=== PATIENT | male | born 1975 | race Hispanic/Latino ===

== ENCOUNTER → 2019-05-10 | Day surgery (SDC) | payer OTHER ==
--- NOTE | 2019-05-09 11:24 | Diagnostic Imaging Report ---
EXAMINATION: CHEST 2 VIEWS INDICATION: Pre-operative COMPARISON: None FINDINGS: LINES/TUBES:None LUNGS:The lungs are well-inflated. No focal consolidation or pulmonary edema. PLEURA:No pleural effusion or pneumothorax. MEDIASTINUM:The cardiomediastinal silhouette appears normal in size and shape. BONES/SOFT TISSUES:No acute osseous injury. ABDOMEN:No free air under the diaphragm. IMPRESSION: No focal pneumonia or pulmonary edema. Signed by: Reba Wheatley MD on 05/09/2019 11:21 AM
[~2019-05-10] MED LIST: ASPIR 8181 MG PO; ATORVASTATIN CA80 MG PO; BUPIVACAINE HCL 0.5% INJ 30 ML VIAL INJ ONE; CARDIZEM120 MG PO; CEFAZOLIN SOD 1 GM/NS 50ML 100 ML IV ONE; CLOPIDOGREL75 MG PO; DEXAMETHASONE SOD PHOS INJ 4 MG/ML VIAL ONE; FENTANYL CITRATE/PF 100MCG/2 ML INJ ONE; GABAPENTIN300 MG PO; IBUPROFEN 800MG/ 250ML 250 ML IV ONE; ISOSORBIDE MONO30 MG PO; LANTUS 3ML100 UNITS/ SQ; LIDOCAINE HCL 2% LOCAL INJ 5 ML SDV VIAL INJ ONE; LISINOPRIL2.5 MG PO; METFORMIN HCL500 M2 PO; METOPROLOL TART25 MG PO; MIDAZOLAM HCL 2 MG/2 ML VIAL ONE; NITROGLYCERIN0.4 MG SL; ONDANSETRON HCL INJ 2MG/ML 2ML 2 MG/ML VIAL ONE; PROPOFOL IV EMULSION 10 MG/ML 20 ML VIAL ONE; SEVOFLURANE INHAL SOLN 250 ML PEN BTL ONE
--- OUTSIDE RECORDS SUMMARY | 2019-05-10 10:10 | XMS REPORT | Clinical Summary ---
Author Author [facility] Organization [facility] Address Unknown Phone Unavailable Care Team Providers Care Remelter Name Role Phone Radha Jc MD PCP Allergies No Known Allergies Medications End Date Status Medication Sig Dispensed Refills Start Date Active isosorbide mononitrate Take 90 mg by 2 (IMDUR) 30 MG 24 hr mouth daily. 9 tablet Active atorvastatin (LIPITOR) 80 Take 80 mg by 1 MG tablet mouth daily. 9 Active diltiazem CD (CardIZEM Take 120 mg 0 CD) 120 MG 24 hr capsule by mouth daily. Active insulin GLARGINE (LANTUS) Inject under 0 100 unit/mL injection the skin (vial) nightly. Active lisinopril Take 2.5 mg 0 (PRINIVIL,ZESTRIL) 2.5 mg by mouth tablet daily. Active metoprolol tartrate Take 12.5 mg 0 (LOPRESSOR) 25 mg tablet by mouth 2 (two) times a day. Active clopidogrel (PLAVIX) 75 Take 75 mg by 0 mg tablet mouth daily. Active Problems Not on file Encounters Care Team Description Date Type Specialty Zak Hannon MD Muppidi, Raghunandan, MD Essential hypertension (Primary Dx); Mixed hyperlipidemia; Coronary artery disease involving [place] coronary artery of [place] heart without angina pectoris 05/04/2019 Office Visit Cardiology after 05/09/2018 Social History Date Tobacco Use Types Packs/Day Years Used Never Assessed Sex Assigned at Date Recorded Not on file Industry Job Start Date Occupation Not on file Not on file Not on file Travel End Travel History Travel Start No recent travel history available. Last Filed Vital Signs Reading Time Taken Comments Vital Sign 120/80 05/04/2019 10:33 AM CDT Blood Pressure 81 05/04/2019 10:33 AM CDT Pulse - - Temperature - - Respiratory Rate 98% 05/04/2019 10:33 AM CDT Oxygen Saturation - - Inhaled Oxygen Concentration 92.8 kg (204 lb 9.6 oz) 05/04/2019 10:33 AM CDT Weight 185.4 cm (6' 1") 05/04/2019 10:33 AM CDT Height 26.99 05/04/2019 10:33 AM CDT Body Mass Index Plan of Treatment Health Maintenance Due Date Last Done Comments INFLUENZA VACCINE 03/16/2019 Results Not on fileafter 05/09/2018 Insurance Type Payer Benefit Subscriber ID Effective Phone Address Plan / Dates Group Exchange [employer] xxxxxxxxxxxx 2019-P EXCHANGE [employer] Advance Directives For more information, please contact: [phone] Patient Field Reimbursement Manager Explanation Type Date Recorded Advance Directives, Living Will and Medical Power of [employer]agon Dr[employer] Operator
--- OUTSIDE RECORDS SUMMARY | 2019-05-10 10:10 | XMS REPORT | Clinical Summary ---
Author Author [facility] Organization [facility] Address Unknown Phone Unavailable Care Team Providers Care Process Owner Name Role Phone PCP Unavailable Allergies No Known Allergies Medications End Date Status Medication Sig Dispensed Refills Start Date Active lisinopril (PRINIVIL, Take 2.5 mg 0 ZESTRIL) 2.5 mg tablet by mouth daily. Active aspirin (ASPIRIN) 81 mg Chew and 0 chewable tablet swallow 81 mg by mouth daily. Active atorvastatin (LIPITOR) 80 Take 80 mg by 0 mg tablet mouth at bedtime nightly. Active clopidogrel (PLAVIX) 75 Take 75 mg by 0 mg tablet mouth daily. Active DILTIAZEM HCL COATED Take 120 mg 0 BEADS (CARDIZEM CD) 120 by mouth mg 24 hr capsule daily. Active insulin glargine (LANTUS) Inject 20 0 100 unit/mL injection Units under the skin 2 times daily. Active INSULIN LISPRO SC Inject 10 0 Units under the skin before meals. Active metFORMIN (GLUCOPHAGE) Take 1,000 mg 0 1,000 mg tablet by mouth 2 times daily (with meals). Active isosorbide mononitrate Take 3 180 tablet 2 (IMDUR) 30 mg extended tablets by 9 release mouth daily. tabletIndications: Coronary artery disease of [place] artery of [place] heart with stable angina pectoris Active metoprolol succinate Take 1 tablet 90 tablet 3 (TOPROL XL) 25 mg by mouth 9 extended release daily. tabletIndications: Coronary artery disease of [place] artery of [place] heart with stable angina pectoris Active nitroGLYCERIN (NITROSTAT) Dissolve 1 100 tablet 2 0.4 mg sublingual tablet under 9 tabletIndications: the tongue Coronary artery disease every 5 of [place] artery of minutes as [place] heart with stable needed, up to angina pectoris 3 times. If chest pain persists, call 911. 01/11/2019 Discontinued Tramadol 50 mg TbDL Take 50 mg by 0 mouth daily. 01/11/2019 Discontinued simvastatin (ZOCOR) 40 mg Take 1 tablet 90 tablet 5 tabletIndications: by mouth at 2 Hyperlipidemia bedtime. 01/11/2019 Discontinued lisinopril (PRINIVIL) 10 Take 1 tablet 30 tablet 1 mg tabletIndications: by mouth 7 Essential hypertension daily. 01/11/2019 Discontinued diltiazem (CARDIZEM) 120 Take 120 mg 0 mg tablet by mouth 4 times daily. 01/12/2019 Discontinued isosorbide mononitrate Take 30 mg by 0 (IMDUR) 30 mg extended mouth daily. release tablet 03/07/2019 Discontinued metoprolol tartrate Take 12.5 mg 0 (LOPRESSOR) 12.5 mg Tab by mouth 2 times daily. 03/07/2019 Discontinued isosorbide mononitrate Take 2 180 tablet 2 (IMDUR) 30 mg extended tablets by 9 release mouth daily. 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 01/12/2019 Type 2 diabetes mellitus without complication, without long-term current 01/12/2019 use of insulin Essential hypertension, benign 01/12/2019 S/P coronary artery stent placement (distal RCA and rPD 12/25/18) 01/12/2019 Hyperlipidemia 03/07/2012 Atypical chest pain 03/07/2012 Radiculopathy of lumbosacral region 03/07/2012 Foraminal stenosis of lumbosacral region 03/07/2012 Healthcare maintenance 01/19/2012 Resolved Problems Problem Noted Date Resolved Date Chest pain in adult 11/03/2017 01/12/2019 Encounters Care Team Description Date Type Specialty Yokasta Hahn, ELIUD 03/15/2019 Nurse Triage Shannan May, Physician Essential hypertension (Primary Dx); Coronary artery disease of [place] artery of [place] heart with stable angina pectoris; Hyperlipidemia, unspecified hyperlipidemia type; Chest pain, unspecified type 03/07/2019 Office Visit Cardiology Mira Guzman RN 01/17/2019 Nurse Triage Tarah Ayoub MD Lescinskas, Erica H, MD Chest pain in adult (Primary Dx); Prophylactic use of low molecular weight heparin for venous thromboembolism (VTE); Blurry vision; Coronary artery disease of [place] artery of [place] heart with stable angina pectoris; Type 2 diabetes mellitus without complication, without long-term current use of insulin 01/11/2019 Emergency - 01/12/2019 after 05/09/2018 Immunizations Name Administration Dates Next Due Td Tetanus, diphtheria 04/10/2008 Toxoids Vaccine Tdap Tetanus, diphtheria, 01/19/2012 acellular pertussis Vaccine Family History Medical History Relation Name Comments Diabetes Brother Diabetes Maternal Grandmother Diabetes Mother Hypertension Mother Diabetes Sister Relation Name Status Comments Brother Alive x2 Brother Daughter Alive Father Alive Maternal Grandfather Maternal Grandmother Mother Alive Paternal Grandfather Paternal Grandmother Sister Alive x2 Sister Son Alive x2 Social History Date Tobacco Use Types Packs/Day Years Used Never Smoker Smokeless Tobacco: Never Used Drinks/Week oz/Week Comments Alcohol Use No Sex Assigned at Date Recorded Not on file Industry Job Start Date Occupation Not on file Not on file Not on file Travel End Travel History Travel Start No recent travel history available. Last Filed Vital Signs Reading Time Taken Comments Vital Sign 119/78 03/07/2019 12:36 PM CDT Blood Pressure 68 03/07/2019 12:36 PM CDT Pulse 36.8 C (98.2 F) 03/07/2019 12:36 PM CDT Temperature 18 03/07/2019 12:36 PM CDT Respiratory Rate 98% 03/07/2019 12:36 PM CDT Oxygen Saturation - - Inhaled Oxygen Concentration 91.9 kg (202 lb 8 oz) 03/07/2019 12:36 PM CDT Weight 185.4 cm (6' 1") 03/07/2019 12:36 PM CDT Height 26.72 03/07/2019 12:36 PM CDT Body Mass Index Plan of Treatment Health Maintenance Due Date Last Done Comments DM Foot Exam (Yearly) 11/25/1991 DM Retinal Exam (Yearly) 11/25/1991 IMM Influenza Seasonal 05/16/2019 Oct to October (>/=19 yrs) CORONARY ARTERY DISEASE 01/13/2020 01/12/2019, 01/19/2012 AGE 18 AND UP DM HGBA1C (Yearly) 01/13/2020 01/12/2019 Procedures Comments Procedure Name Priority Date/Time Associated Diagnosis SEQUENTIAL COMPRESSION Routine 01/12/2019 PUMP 2:48 PM CDT POC GLUCOSE - IN LAB Routine 01/12/2019 (STAT) 12:30 PM CDT POC GLUCOSE - IN LAB Routine 01/12/2019 (STAT) 8:06 AM CDT TRANSTHORACIC ECHO (TTE) STAT 01/12/2019 7:46 AM CDT THYROID STIMULATING Routine 01/12/2019 HORMONE (TSH) 5:30 AM CDT MAGNESIUM Routine 01/12/2019 5:30 AM CDT LIPID PROFILE Routine 01/12/2019 5:30 AM CDT HEMOGLOBIN A1C Routine 01/12/2019 5:30 AM CDT CBC (WITHOUT Routine 01/12/2019 DIFFERENTIAL) 5:30 AM CDT BASIC METABOLIC PANEL Routine 01/12/2019 5:30 AM CDT PTT Routine 01/12/2019 5:30 AM CDT TROPONIN I Routine 01/12/2019 2:00 AM CDT INFUSION PUMP STAT 01/11/2019 8:50 PM CDT POC GLUCOSE - IN LAB Routine 01/11/2019 (STAT) 8:25 PM CDT TROPONIN I Routine 01/11/2019 8:00 PM CDT 12 LEAD EKG STAT 01/11/2019 7:00 PM CDT TROPONIN I POC Routine 01/11/2019 6:49 PM CDT XRAY CHEST 1 VIEW STAT 01/11/2019 Chest pain in adult 3:33 PM CDT POCT BNP (B-TYPE Routine 01/11/2019 NATRIURETIC PEPTIDE) 3:25 PM CDT BMP POC Routine 01/11/2019 3:18 PM CDT TROPONIN I POC Routine 01/11/2019 3:16 PM CDT B-TYPE NATRIURETIC STAT 01/11/2019 PEPTIDE (BNP) 3:10 PM CDT CBC/DIFF STAT 01/11/2019 3:10 PM CDT HIV-1/HIV-2 ROUTINE STAT 01/11/2019 SCREENING 3:10 PM CDT 12 LEAD EKG Routine 01/11/2019 3:00 PM CDT after 05/09/2018 Results * GLUCOSE POC (01/12/2019 12:30 PM CDT) Only the most recent of 3 results within the time period is included. Glucose POC 150 (H) 74 - 106 mg/dL BT MAIN-STATION 1 Specimen Performing Organization Address City/State/Zipcode Phone Number MISYS BT MAIN-STATION 1 * TRANSTHORACIC ECHO (TTE) (01/12/2019 7:46 AM CDT) TRANSTHORACIC Transthoracic SMS ECHO (TTE) Echo Report RICKY HOPSON Age:43 Gender: M :1975 Exam Date: 01/12/2019 07:46 Exam Location: [facility] Echo Ordering Phys: MARCY MENDOZA Referring Phys:KELLY Tolliver Reading Phys:Ann Clifton MD Fellow Phys: Luciano Oliveira M.D. Fellow Phys: Interventional Physician: Brad Dillon Reason For Exam: Indications: CAD ICD-9 Codes: I25._ Exam Type: TRANSTHORACIC ECHO (TTE) Procedure CPT:13993 Addtional CPT: Ht (in): 73 BSA: 2.14HR: 67 Rhythm: Sinus rhythm Wt (lb): 195BP: 125/ 84 Technical Quality: Good History: chest pain; recent STEMI on IABP MEASUREMENTS Normal ranges based on 95% confidence intervals for adults, some normal patients may fall outside of this range especially when indexing for BSA 2D ECHO LV Diastolic Diameter PLAX4.4 cm 4.2-5.8 (M) / 3.8-5.2 (F) LV Systolic Diameter PLAX 2.5 cm 2.5-4.0 (M) / 2.2-3.5 (F) LV Fractional Shortening PLAX 41.7 % IVS Diastolic Thickness 0.86 cm 0.6-1.0 (M) / 0.6-0.9 (F) LVPW Diastolic Thickness1 cm 0.6-1.0 (M) / 0.6-0.9 (F) LV Relative Wall Thickness0.43 <=0.42 LVOT Diameter 2.1 cm Aortic Root Diameter 3.6 cm LV Diastolic Volume MOD BP89.3 cm 62-150 cm (M) / 46-106 cm (F) LV Stroke Volume MOD BP 48.2 cm LV Cardiac Output MOD [id number] cm/min LV Cardiac Index MOD BP 1506 cm/minm LA Volume 22.1 cm LA Volume Index 10.3 cm/m 16 - 34 cm/m RV Diastolic Basal Diameter 3.7 cm 2.5 - 4.1 cm LV Mass by linear [id number] g LV Mass by linear method Index61.5 g/m RA Volume 33 cm RA Volume Index 15.4 cm/m DOPPLER AV Peak Velocity 96.8 cm/s AV Peak Gradient 3.8 mmHg LVOT Peak Velocity 82.6 cm/s LVOT Peak Gradient 2.7 mmHg LVOT Mean Velocity 53.1 cm/s LVOT Mean Gradient 1.1 mmHg LVOT Velocity Time Integral 18.2 cm LVOT Stroke Volume 64.4 cm AV Area Cont Eq pk 3 cm Mitral E Point Velocity 72.5 cm/s Mitral A Point Velocity 54.4 cm/s Mitral E to A Ratio 1.3 LV E' Lateral Velocity 11.1 cm/s Mitral E to LV E' Lateral Ratio 6.5 LV E' Septal Velocity 6.9 cm/s Mitral E to LV E' Septal Ratio10.5 FINDINGS Left Ventricle [place] is foreshortened. Ultrasound contrast was used for LV opacification. Normal left ventricular size. Normal left ventricular wall thickness. Low normal global left ventricular systolic function. Left ventricular ejection fraction is 50-54%.In various views, the inferior/inferolateral hopper appear hypokinetic but are not optimally seen despite the use of contrast. Impaired LV relaxation, normal LV filling pressures. Right Ventricle Normal right ventricular size and systolic function. Right Atrium Normal right atrial size. Left Atrium Normal left atrial size. IAS Mitral Valve Grossly normal mitral valve. Trace mitral regurgitation. Aortic Valve The aortic valve is trileaflet and opens well. No aortic valve stenosis or regurgitation. Tricuspid Valve Grossly normal tricuspid valve. Trace tricuspid regurgitation. Insufficient TR jet to estimate pulmonary artery systolic pressure. Pulmonic Valve Pulmonic valve not well visualized. No pulmonic stenosis. Trace pulmonic regurgitation. Pericardium No pericardial effusion. Aorta Normal size aortic root. IVC IVC is normal in size.normal hepatic vein flow patterns.RA pressure is 0-5 mmHg. CONCLUSIONS There are no prior studies available for comparison. - [place] is foreshortened. Ultrasound contrast was used for LV opacification. Normal left ventricular size. Normal left ventricular wall thickness. Low normal global left ventricular systolic function. Left ventricular ejection fraction is 50-54%.In various views, the inferior/inferolateral hopper appear hypokinetic but are not optimally seen despite the use of contrast. Impaired LV relaxation, normal LV filling pressures. -Normal right ventricular size and systolic function. -Normal atria -No significant valvular pathology. Ann Clifton MD Edited by:Ann Clifton MD (Electronically Signed) Final Date:12 Jan 2019 13:48 2D ECHO LV Diastolic Diameter PLAX4.4 cm 4.2-5.8 (M) / 3.8-5.2 (F) LV Systolic Diameter PLAX 2.5 cm 2.5-4.0 (M) / 2.2-3.5 (F) LV Fractional Shortening PLAX 41.7 % IVS Diastolic Thickness 0.86 cm 0.6-1.0 (M) / 0.6-0.9 (F) LVPW Diastolic Thickness1 cm 0.6-1.0 (M) / 0.6-0.9 (F) LV Relative Wall Thickness0.43 <=0.42 LVOT Diameter 2.1 cm Aortic Root Diameter 3.6 cm LV Diastolic Volume MOD BP89.3 cm 62-150 cm (M) / 46-106 cm (F) LV Stroke Volume MOD BP 48.2 cm LV Cardiac Output MOD [id number] cm/min LV Cardiac Index MOD BP 1506 cm/minm LA Volume 22.1 cm LA Volume Index 10.3 cm/m 16 - 34 cm/m RV Diastolic Basal Diameter 3.7 cm 2.5 - 4.1 cm LV Mass by linear g LV Mass by linear method Index61.5 g/m RA Volume 33 cm RA Volume Index 15.4 cm/m DOPPLER AV Peak Velocity 96.8 cm/s AV Peak Gradient 3.8 mmHg LVOT Peak Velocity 82.6 cm/s LVOT Peak Gradient 2.7 mmHg LVOT Mean Velocity 53.1 cm/s LVOT Mean Gradient 1.1 mmHg LVOT Velocity Time Integral 18.2 cm LVOT Stroke Volume 64.4 cm AV Area Cont Eq pk 3 cm Mitral E Point Velocity 72.5 cm/s Mitral A Point Velocity 54.4 cm/s Mitral E to A Ratio 1.3 LV E' Lateral Velocity 11.1 cm/s Mitral E to LV E' Lateral Ratio 6.5 LV E' Septal Velocity 6.9 cm/s Mitral E to LV E' Septal Ratio10.5 Specimen Performing Organization Address City/[facility]/[employer] Phone Number SMS * HEMOGLOBIN A1C (01/12/2019 5:30 AM CDT) Hemoglobin A1c 9.8 (H) 4.3 - 6.1 % BT DIAGNOSTIC IMMUNOLOGY Est Average 234.6 mg/dL BT DIAGNOSTIC Gluc IMMUNOLOGY Specimen Performing Organization Address City/State/[facility] Phone Number M[facility]YS BT DIAGNOSTIC IMMUNOLOGY * TSH (01/12/2019 5:30 AM CDT) TSH 1.44 0.57 - 3.74 uIU/mL BT MAIN-STATION 1 Specimen Performing Organization Address City/[facility] Phone Number MISYS BT MAIN-STATION 1 * PTT (01/12/2019 5:30 AM CDT) PTT 39.9 (H) 23.6 - 36.4 Seconds BT MAIN-STATION 3 Specimen Blood Performing Organization Address City/State/Zipcode Phone Number MISYS BT MAIN-STATION 3 * MAGNESIUM (01/12/2019 5:30 AM CDT) Magnesium 2.2 1.9 - 2.7 mg/dL BT MAIN-STATION 1 Specimen Performing Organization Address City/[facility] Phone Number M[facility]YS BT MAIN-STATION 1 * LIPID PROFILE (01/12/2019 5:30 AM CDT) Cholesterol 163 mg/dL BT MAIN-STATION Comment: 1 REFERENCE RANGE: Desirable: <200 mg/dL Borderline: 200-240 mg/dL High Risk: >240 mg/dL Triglyceride 123 <150 mg/dL BT MAIN-STATION Comment: 1 REFERENCE RANGE: Normal: <150 mg/dL Borderline High: 150-199 mg/dL High: 200-499 mg/dL Very High: >qq=372 mg/dL HDL 40 mg/dL BT MAIN-STATION Comment: 1 Increased CHD risk: <40 mg/dL Decreased CHD risk: >60 mg/dL LDL 98 mg/dL BT MAIN-STATION Comment: 1 REFERENCE RANGE: Optimal: <100 mg/dL Near Optimal: 100-129 mg/dL Borderline High: 130-159 mg/dL High: 160-189 mg/dL Very High: >lk=336 mg/dL Specimen Performing Organization Address [facility] [place] Phone Number [facility] BT MAIN-STATION 1 * CBC (01/12/2019 5:30 AM CDT) WBC 5.9 4.5 - 12.0 K/uL BT MAIN-STATION 2 RBC 4.72 4.60 - 6.20 M/uL BT MAIN-STATION 2 Hemoglobin 14.3 14.0 - 18.0 g/dL BT MAIN-STATION 2 Hematocrit 43.6 40.0 - 54.0 % BT MAIN-STATION 2 MCV 92 82 - 92 fL BT MAIN-STATION 2 MCH 30.3 27.0 - 31.0 pg BT MAIN-STATION 2 MCHC 32.8 32.0 - 36.0 g/dL BT MAIN-STATION 2 RDW 43.7 35.1 - 43.9 fL BT MAIN-STATION 2 Platelets 353 150 - 400 K/uL BT MAIN-STATION 2 Mean Platelet 9.7 9.4 - 12.4 fL BT MAIN-STATION Volume 2 Percent NRBC 0.0 BT MAIN-STATION 2 Absolute NRBC 0.00 BT MAIN-STATION 2 Specimen Performing Organization Address [facility] [place] Phone Number [facility] BT MAIN-STATION 2 * BASIC METABOLIC PANEL (01/12/2019 5:30 AM CDT) CO2 23 21 - 31 mmol/L BT MAIN-STATION 1 Chloride 106 98 - 107 mmol/L BT MAIN-STATION 1 Potassium 4.6 3.5 - 5.1 mmol/L BT MAIN-STATION 1 Sodium 139 136 - 145 mmol/L BT MAIN-STATION 1 Glucose 143 (H) 70 - 110 mg/dL BT MAIN-STATION 1 BUN 14 7 - 25 mg/dL BT MAIN-STATION 1 Creatinine 0.80 0.7 - 1.3 mg/dL BT MAIN-STATION 1 Anion Gap 10 BT MAIN-STATION 1 Calcium 9.2 8.6 - 10.3 mg/dL BT MAIN-STATION 1 GFR, Estimated >60 mL/min/1.73 m2 BT MAIN-STATION 1 eGFR If Africn >60 mL/min/1.73 m2 BT MAIN-STATION Am 1 Specimen Performing Organization Address City/[facility] [place] Phone Number [facility] BT MAIN-STATION 1 * TROPONIN I (01/12/2019 2:00 AM CDT) Only the most recent of 2 results within the time period is included. 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 Troponin POC 0.00 0.00 - 0.08 ng/mL BT MAIN-STATION 1 Specimen Performing Organization Address [facility] [place] Phone Number M[facility] BT MAIN-STATION 1 * XRAY CHEST 1 VIEW (01/11/2019 3:33 PM CDT) Specimen Impressions Performed At IMPRESSION: [facility] No acute thoracic abnormality. If the report is "FINALIZED" it indicates that the attending/staff radiologist has reviewed the images and agrees with the resident's interpretation. I have reviewed the study and agree with the findings in this report. Signed By: Sarah Green MD, 01/11/2019 4:17 PM Narrative Performed At EXAMINATION:XRAY CHEST 1 VIEW [facility] INDICATION: chest pain COMPARISON:None FINDINGS: Studies limited due to shock room technique. TUBES and LINES:None. LUNGS:Lungs are well inflated.Lungs are clear. There is no evidence of pneumonia or pulmonary edema. PLEURA:No pleural effusion or pneumothorax. HEART AND MEDIASTINUM:The cardiomediastinal silhouette is unremarkable. BONES AND SOFT TISSUES:No acute osseous lesion.Soft tissues are unremarkable. UPPER ABDOMEN: No free air under the diaphragm. Procedure Note Interface, Rad/Mammog In - 01/11/2019 4:22 PM CDT EXAMINATION: XRAY CHEST 1 VIEW INDICATION: chest pain COMPARISON: None FINDINGS: Studies limited due to shock room technique. TUBES and LINES: None. LUNGS: Lungs are well inflated. Lungs are clear. There is no evidence of pneumonia or pulmonary edema. PLEURA: No pleural effusion or pneumothorax. HEART AND MEDIASTINUM: The cardiomediastinal silhouette is unremarkable. BONES AND SOFT TISSUES: No acute osseous lesion. Soft tissues are unremarkable. UPPER ABDOMEN: No free air under the diaphragm. IMPRESSION IMPRESSION: No acute thoracic abnormality. If the report is "FINALIZED" it indicates that the attending/staff radiologist has reviewed the images and agrees with the resident's interpretation. I have reviewed the study and agree with the findings in this report. Signed By: Sarah Green MD, 01/11/2019 4:17 PM Performing Organization Address [facility] Phone Number SMS * POCT BNP (BRAIN NATRIURETIC PEPTIDE) (01/11/2019 3:25 PM CDT) B Natr Pept POC 86 0 - 100 pg/mL BT MAIN-STATION 1 Specimen Performing Organization Address [facility] [place] Phone Number [facility] BT MAIN-STATION 1 * BMP POC (01/11/2019 3:18 PM CDT) CO2 POC 23 21 - 32 mmol/L BT MAIN-STATION 1 Chloride POC 104 98 - 107 mmol/L BT MAIN-STATION 1 Potassium POC 3.8 3.50 - 5.10 mmol/L BT MAIN-STATION 1 Sodium POC 141 136 - 145 mmol/L BT MAIN-STATION 1 Glucose POC 109 (H) 74 - 106 mg/dL BT MAIN-STATION 1 Urea Nitrogen 16 7 - 18 mg/dL BT MAIN-STATION POC 1 Creatinine POC 0.8 0.6 - 1.3 mg/dL BT MAIN-STATION 1 Calcium Ionized 1.13 (L) 1.15 - 1.29 mmol/L BT MAIN-STATION POC 1 Hemoglobin POC 15.6 14.0 - 18.0 g/dL BT MAIN-STATION 1 Hematocrit POC 46.0 40.0 - 54.0 % BT MAIN-STATION 1 GFR, Estimated >60 mL/min/1.73 m2 BT MAIN-STATION 1 GFR, Estim, >60 mL/min/1.73 m2 BT MAIN-STATION Afr-Am 1 Specimen Performing Organization Address [facility] Phone Number M[facility] BT MAIN-STATION 1 * HIV-1/HIV-2 ROUTINE SCREENING (01/11/2019 3:10 PM CDT) HIV-1/HIV-2 Negative NEG BT MAIN-STATION 4 Specimen Performing Organization Address [facility] [place] Phone Number [facility] MAIN-STATION 4 * B-TYPE NATRIURETIC PEPTIDE (BNP) (01/11/2019 3:10 PM CDT) B Natriuretic 56 <101 pg/mL BT MAIN-STATION Pept 1 Specimen Blood Performing Organization Address [facility] Cent[facility]ode Phone Number M[facility]YS BT MAIN-STATION 1 * CBC/DIFF (01/11/2019 3:10 PM CDT) WBC 10.8 4.5 - 12.0 K/uL BT MAIN-STATION 2 RBC 4.67 4.60 - 6.20 M/uL BT MAIN-STATION 2 Hemoglobin 13.9 (L) 14.0 - 18.0 g/dL BT MAIN-STATION 2 Hematocrit 43.3 40.0 - 54.0 % BT MAIN-STATION 2 MCV 93 (H) 82 - 92 fL BT MAIN-STATION 2 MCH 29.8 27.0 - 31.0 pg BT MAIN-STATION 2 MCHC 32.1 32.0 - 36.0 g/dL BT MAIN-STATION 2 RDW 43.9 35.1 - 43.9 fL BT MAIN-STATION 2 Platelets 441 (H) 150 - 400 K/uL BT MAIN-STATION 2 Mean Platelet 10.0 9.4 - 12.4 fL BT MAIN-STATION Volume 2 Percent NRBC 0.0 BT MAIN-STATION 2 Absolute NRBC 0.00 BT MAIN-STATION 2 Neutrophils 49.1 34.0 - 67.9 % BT MAIN-STATION 2 Lymphs 40.3 21.8 - 50.0 % BT MAIN-STATION 2 Monocytes 7.8 5.3 - 12.0 % BT MAIN-STATION 2 Eos 1.8 0.8 - 5.0 % BT MAIN-STATION 2 Basos 0.6 0.2 - 1.2 % BT MAIN-STATION 2 Immature 0.4 0.0 - 0.5 BT MAIN-STATION Granulocytes 2 Neutrophils 5.32 1.78 - 5.36 K/uL BT MAIN-STATION (Absolute) 2 Lymphs 4.36 (H) 1.32 - 3.57 K/uL BT MAIN-STATION (Absolute) 2 Monocytes(Absol 0.84 (H) 0.30 - 0.82 K/uL BT MAIN-STATION [place]) 2 Eos (Absolute) 0.20 0.04 - 0.54 K/uL BT MAIN-STATION 2 Baso (Absolute) 0.07 0.01 - 0.08 K/uL BT MAIN-STATION 2 Immature Grans 0.04 (H) 0.00 - 0.03 K/uL BT MAIN-STATION (Abs) 2 Specimen Blood Performing Organization Address City/State/Zipcode Phone Number MISYS BT MAIN-STATION 2 * 12 LEAD EKG (01/11/2019 3:00 PM CDT) 12 LEAD EKG FOR [facility] Test Date:2019-01-11 Pat Name: RICKY Manning rtment: [id number] Room: Gender: M Bed Worker: [id number] :1976-0 11-24 Requested By: TAYLA PEREZ Order Number: [id number] Becki MD: Brian Curry M.D. Measurements Intervals [place] Rate: 72 P:47 VA: 138 QRS: 27 QRSD: 105 T: -7 QT: 413 QTc:455 Interpretive Statements SINUS RHYTHM INFERIOR MYOCARDIAL INFARCTION, OF INDETERMINATE AGE WITH POSTERIOR EXTENSION Electronically Signed On 01-11-2019 16:00:59 CDT by Brian Curry M.D. Specimen Performing Organization Address City/State/Zipcode Phone Number SMS after 05/09/2018 Insurance Type Payer Benefit Subscriber ID Effective Phone Address Plan / Dates Group [place] [employer] [place] 2019- [phone] [address] [employer] 2020 [id number] [place], [place] [facility] [id number] [facility] xxxxxxxxxxxx 2019-P [phone] [address] 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
--- OUTSIDE RECORDS SUMMARY | 2019-05-10 10:11 | XMS REPORT ---
[facility] Address Unknown Phone Unavailable Care Team Providers Care [employer] Name Role Phone Shankar JEFFERS Unavailable Unavailable Payers Payer Name Policy Type Policy Number Effective Date Expiration Date Problems This patient has no known problems. Allergies, Adverse Reactions, Alerts Allergy Name Allergy Type Status Severity Reaction(s) Onset Date Inactive Date Treating Clinician Comments No Known Allergies DA Active U 2018-12-25 00:00:00 Medications This patient has no known medications. Encounters Start Date/Time End Date/Time Encounter Type Admission Type Attending Clinicians Care Facility Care Department Encounter ID 2019-03-07 12:32:23 2019-03-07 12:32:23 Outpatient [facility] [id number] 2019-01-12 11:04:38 2019-01-12 11:04:38 Outpatient [facility] [id number] 2019-01-11 15:08:36 2019-01-11 15:08:[address] [facility] [id number] 2017-11-03 20:25:00 2017-11-03 20:25:[address] [facility] [id number] Results Test Description Test Time Test Comments Text Results Atomic Results Result Comments CHEST 2 VIEWS 2019-05-09 11:20:00 [place] [address] Patient Name: JATIN HOPSON MR #: [id number] : 1975 Age/Sex: 43/M Req #: [id number] Adm Physician: Ordered by: GLADYS PAIGE MD Report #: [id number] Location: OR Room/Bed: Procedure: [id number] DX/CHEST 2 VIEWS Exam Date: 05/09/19 Exam Time: 1040 REPORT STATUS: Signed EXAMINATION: CHEST 2 VIEWS INDICATION: Pre-operative COMPARISON: None FINDINGS: LINES/TUBES:None LUNGS:The lungs are well-inflated. No focal consolidation or pulmonary edema. PLEURA:No pleural effusion or pneumothorax. MEDIASTINUM:The cardiomediastinal silhouette appears normal in size and shape. BONES/SOFT TISSUES:No acute osseous injury. ABDOMEN:No free air under the diaphragm. IMPRESSION: No focal pneumonia or pulmonary edema. Signed by: Elena Schuster MD on 05/09/2019 11:21 AM Dictated By: ELENA SCHUSTER MD 112 Transcribed By: DANUTA POE on 05/09/19 112 COPY TO: GLADYS PAIGE MD BASIC METABOLIC PANEL 2019-01-02 08:11:00 SODIUM (test code=NA) 138 mmol/L 136-145 POTASSIUM (test code=K) 4.1 mmol/L 3.5-5.1 CHLORIDE (test code=CL) 105.0 mmol/L 98-107 CARBON DIOXIDE (test code=CO2) 25.0 mmol/L 21-32 ANION GAP (test code=GAP) 12.1 10-20 GLUCOSE (test code=GLU) 112 mg/dL 74-106 BLOOD UREA NITROGEN (test code=BUN) 10 mg/dL 7-18 GLOMERULAR FILTRATION RATE (test code=GFR) > 60 mL/min >=60 Estimated GFR by using Modified MDRD formula.Chronic kidney disease is defined as either kidney damageor GFR <60 mL/min/1.73 m2 for >3 months. CREATININE (test code=CREAT) 0.80 mg/dL 0.7-1.3 BUN/CREATININE RATIO (test code=BUN/CREA) 12.5 10-20 CALCIUM (test code=CA) 8.8 mg/dL 8.5-10.1 BASIC METABOLIC [id number] 08:06:00* Test Item Value Reference Range Comments SODIUM (test code=NA) 138 mmol/L 136-145 POTASSIUM (test code=K) 4.1 mmol/L 3.5-5.1 CHLORIDE (test code=CL) 105.0 mmol/L 98-107 CARBON DIOXIDE (test code=CO2) mmol/L 21-32 ANION GAP (test code=GAP) 10-20 GLUCOSE (test code=GLU) mg/dL 74-106 BLOOD UREA NITROGEN (test code=BUN) mg/dL 7-18 GLOMERULAR FILTRATION RATE (test code=GFR) mL/min >=60 CREATININE (test code=CREAT) mg/dL 0.7-1.3 BUN/CREATININE RATIO (test code=BUN/CREA) 10-20 CALCIUM (test code=CA) mg/dL 8.5-10.1 CBC W/AUTO [id number] 07:45:00* Test Item Value Reference Range Comments WHITE BLOOD CELL (test code=WBC) 5.6 K/mm3 4.5-12.5 RED BLOOD CELL (test code=RBC) 4.75 mill/mm3 4.0-5.8 HEMOGLOBIN (test code=HGB) 14.0 gram/dL 13.0-17.5 HEMATOCRIT (test code=HCT) 42.5 % 42.0-52.0 MEAN CELL VOLUME (test code=MCV) 89.5 fL 80-98 MEAN CELL HGB (test code=MCH) 29.5 picogram 27.0-33.0 MEAN CELL HGB CONCETRATION (test code=MCHC) 32.9 gram/dL 33.0-36.0 RED CELL DISTRIBUTION WIDTH (test code=RDW) 12.4 % 11.6-16.2 RED CELL DISTRIBUTION WIDTH SD (test code=RDW-SD) 41.0 fL 37.0-51.0 PLATELET COUNT (test code=PLT) 344 K/mm3 150-450 MEAN PLATELET VOLUME (test code=MPV) 9.5 fL 6.7-11.0 NEUTROPHIL % (test code=NT%) 55.9 % 39.0-69.0 IMMATURE GRANULOCYTE % (test code=IG%) 0.4 % 0.0-5.0 LYMPHOCYTE % (test code=LY%) 29.5 % 25.0-55.0 MONOCYTE % (test code=MO%) 9.7 % 0.0-10.0 EOSINOPHIL % (test code=EO%) 3.8 % 0.0-5.0 BASOPHIL % (test code=BA%) 0.7 % 0.0-1.0 NUCLEATED RBC % (test code=NRBC%) 0.0 % 0-0 NEUTROPHIL # (test code=NT#) 3.13 K/mm3 1.8-7.7 IMMATURE GRANULOCYTE # (test code=IG#) 0.02 x10 3/uL 0-0.03 LYMPHOCYTE # (test code=LY#) 1.65 K/mm3 1.0-5.0 MONOCYTE # (test code=MO#) 0.54 K/mm3 0-0.8 EOSINOPHIL # (test code=EO#) 0.21 K/mm3 0.0-0.5 BASOPHIL # (test code=BA#) 0.04 K/mm3 0.0-0.2 NUCLEATED RBC # (test code=NRBC#) 0.00 K/mm3 0.0-0.1 MANUAL DIFF REQUIRED (test code=MDIFF) NO [id number] 06:16:00* Test Item Value Reference Range Comments GLUBED (test code=GLUBED) 137 mg/dL 74-106 Performed by certified cloth mercerizer operator at [facility] [id number] 06:16:00* Test Item Value Reference Range Comments GLUBED (test code=GLUBED) 148 mg/dL 74-106 Performed by certified cloth mercerizer operator at [facility] [id number] 16:22:00* Test Item Value Reference Range Comments GLUBED (test code=GLUBED) 138 mg/dL 74-106 Performed by certified cloth mercerizer operator at [facility] [id number] 11:47:00* Test Item Value Reference Range Comments GLUBED (test code=GLUBED) 175 mg/dL 74-106 Performed by certified cloth mercerizer operator at [facility] BASIC METABOLIC [id number] 08:37:00* Test Item Value Reference Range Comments SODIUM (test code=NA) 136 mmol/L 136-145 POTASSIUM (test code=K) 4.4 mmol/L 3.5-5.1 CHLORIDE (test code=CL) 104.0 mmol/L 98-107 CARBON DIOXIDE (test code=CO2) 26.0 mmol/L 21-32 ANION GAP (test code=GAP) 10.4 10-20 GLUCOSE (test code=GLU) 179 mg/dL 74-106 BLOOD UREA NITROGEN (test code=BUN) 7 mg/dL 7-18 GLOMERULAR FILTRATION RATE (test code=GFR) > 60 mL/min >=60 Estimated GFR by using Modified MDRD formula.Chronic kidney disease is defined as either kidney damageor GFR <60 mL/min/1.73 m2 for >3 months. CREATININE (test code=CREAT) 0.90 mg/dL 0.7-1.3 BUN/CREATININE RATIO (test code=BUN/CREA) 7.8 10-20 CALCIUM (test code=CA) 8.9 mg/dL 8.5-10.1 CBC W/AUTO [id number] 08:23:00* Test Item Value Reference Range Comments WHITE BLOOD CELL (test code=WBC) 6.0 K/mm3 4.5-12.5 RED BLOOD CELL (test code=RBC) 4.42 mill/mm3 4.0-5.8 HEMOGLOBIN (test code=HGB) 13.0 gram/dL 13.0-17.5 HEMATOCRIT (test code=HCT) 39.3 % 42.0-52.0 MEAN CELL VOLUME (test code=MCV) 88.9 fL 80-98 MEAN CELL HGB (test code=MCH) 29.4 picogram 27.0-33.0 MEAN CELL HGB CONCETRATION (test code=MCHC) 33.1 gram/dL 33.0-36.0 RED CELL DISTRIBUTION WIDTH (test code=RDW) 12.6 % 11.6-16.2 RED CELL DISTRIBUTION WIDTH SD (test code=RDW-SD) 41.0 fL 37.0-51.0 PLATELET COUNT (test code=PLT) 328 K/mm3 150-450 MEAN PLATELET VOLUME (test code=MPV) 9.4 fL 6.7-11.0 NEUTROPHIL % (test code=NT%) 68.5 % 39.0-69.0 IMMATURE GRANULOCYTE % (test code=IG%) 0.5 % 0.0-5.0 LYMPHOCYTE % (test code=LY%) 19.1 % 25.0-55.0 MONOCYTE % (test code=MO%) 9.1 % 0.0-10.0 EOSINOPHIL % (test code=EO%) 2.3 % 0.0-5.0 BASOPHIL % (test code=BA%) 0.5 % 0.0-1.0 NUCLEATED RBC % (test code=NRBC%) 0.0 % 0-0 NEUTROPHIL # (test code=NT#) 4.12 K/mm3 1.8-7.7 IMMATURE GRANULOCYTE # (test code=IG#) 0.03 x10 3/uL 0-0.03 LYMPHOCYTE # (test code=LY#) 1.15 K/mm3 1.0-5.0 MONOCYTE # (test code=MO#) 0.55 K/mm3 0-0.8 EOSINOPHIL # (test code=EO#) 0.14 K/mm3 0.0-0.5 BASOPHIL # (test code=BA#) 0.03 K/mm3 0.0-0.2 NUCLEATED RBC # (test code=NRBC#) 0.00 K/mm3 0.0-0.1 MANUAL DIFF REQUIRED (test code=MDIFF) NO [id number] 06:22:00* Test Item Value Reference Range Comments GLUBED (test code=GLUBED) 85 mg/dL 74-106 Performed by certified cloth mercerizer operator at [facility] [id number] 20:41:00* Test Item Value Reference Range Comments GLUBED (test code=GLUBED) 197 mg/dL 74-106 Performed by certified cloth mercerizer operator at [facility] [id number] 17:28:00* Test Item Value Reference Range Comments GLUBED (test code=GLUBED) 109 mg/dL 74-106 Performed by certified cloth mercerizer operator at [facility] [id number] 12:49:00* Test Item Value Reference Range Comments GLUBED (test code=GLUBED) 156 mg/dL 74-106 Performed by certified cloth mercerizer operator at [facility] CBC W/AUTO [id number] 08:31:00* Test Item Value Reference Range Comments WHITE BLOOD CELL (test code=WBC) 6.0 K/mm3 4.5-12.5 RED BLOOD CELL (test code=RBC) 4.29 mill/mm3 4.0-5.8 HEMOGLOBIN (test code=HGB) 12.6 gram/dL 13.0-17.5 HEMATOCRIT (test code=HCT) 39.1 % 42.0-52.0 MEAN CELL VOLUME (test code=MCV) 91.1 fL 80-98 MEAN CELL HGB (test code=MCH) 29.4 picogram 27.0-33.0 MEAN CELL HGB CONCETRATION (test code=MCHC) 32.2 gram/dL 33.0-36.0 RED CELL DISTRIBUTION WIDTH (test code=RDW) 12.6 % 11.6-16.2 RED CELL DISTRIBUTION WIDTH SD (test code=RDW-SD) 41.7 fL 37.0-51.0 PLATELET COUNT (test code=PLT) 296 K/mm3 150-450 RESULT VERIFIED BY REPEAT ANALYSIS MEAN PLATELET VOLUME (test code=MPV) 9.7 fL 6.7-11.0 NEUTROPHIL % (test code=NT%) 58.1 % 39.0-69.0 IMMATURE GRANULOCYTE % (test code=IG%) 0.5 % 0.0-5.0 LYMPHOCYTE % (test code=LY%) 27.1 % 25.0-55.0 MONOCYTE % (test code=MO%) 10.4 % 0.0-10.0 EOSINOPHIL % (test code=EO%) 3.2 % 0.0-5.0 BASOPHIL % (test code=BA%) 0.7 % 0.0-1.0 NUCLEATED RBC % (test code=NRBC%) 0.0 % 0-0 NEUTROPHIL # (test code=NT#) 3.46 K/mm3 1.8-7.7 IMMATURE GRANULOCYTE # (test code=IG#) 0.03 x10 3/uL 0-0.03 LYMPHOCYTE # (test code=LY#) 1.61 K/mm3 1.0-5.0 MONOCYTE # (test code=MO#) 0.62 K/mm3 0-0.8 EOSINOPHIL # (test code=EO#) 0.19 K/mm3 0.0-0.5 BASOPHIL # (test code=BA#) 0.04 K/mm3 0.0-0.2 NUCLEATED RBC # (test code=NRBC#) 0.00 K/mm3 0.0-0.1 MANUAL DIFF REQUIRED (test code=MDIFF) NO [id number] 06:57:00* Test Item Value Reference Range Comments GLUBED (test code=GLUBED) 117 mg/dL 74-106 [facility] BASIC METABOLIC [id number] 06:16:00* Test Item Value Reference Range Comments SODIUM (test code=NA) 137 mmol/L 136-145 POTASSIUM (test code=K) 3.6 mmol/L 3.5-5.1 CHLORIDE (test code=CL) 101.0 mmol/L 98-107 CARBON DIOXIDE (test code=CO2) 26.0 mmol/L 21-32 ANION GAP (test code=GAP) 13.6 10-20 GLUCOSE (test code=GLU) 110 mg/dL 74-106 BLOOD UREA NITROGEN (test code=BUN) 8 mg/dL 7-18 GLOMERULAR FILTRATION RATE (test code=GFR) > 60 mL/min >=60 Estimated GFR by using Modified MDRD formula.Chronic kidney disease is defined as either kidney damageor GFR <60 mL/min/1.73 m2 for >3 months. CREATININE (test code=CREAT) 0.90 mg/dL 0.7-1.3 BUN/CREATININE RATIO (test code=BUN/CREA) 8.9 10-20 CALCIUM (test code=CA) 9.0 mg/dL 8.5-10.1 BASIC METABOLIC [id number] 06:09:00* Test Item Value Reference Range Comments SODIUM (test code=NA) 137 mmol/L 136-145 POTASSIUM (test code=K) 3.6 mmol/L 3.5-5.1 CHLORIDE (test code=CL) 101.0 mmol/L 98-107 CARBON DIOXIDE (test code=CO2) mmol/L 21-32 ANION GAP (test code=GAP) 10-20 GLUCOSE (test code=GLU) mg/dL 74-106 BLOOD UREA NITROGEN (test code=BUN) mg/dL 7-18 GLOMERULAR FILTRATION RATE (test code=GFR) mL/min >=60 CREATININE (test code=CREAT) mg/dL 0.7-1.3 BUN/CREATININE RATIO (test code=BUN/CREA) 10-20 CALCIUM (test code=CA) mg/dL 8.5-10.1 [id number] 20:50:00* Test Item Value Reference Range Comments GLUBED (test code=GLUBED) 144 mg/dL 74-106 [facility] [id number] 15:21:00* Test Item Value Reference Range Comments GLUBED (test code=GLUBED) 120 mg/dL 74-106 Performed by certified cloth mercerizer operator at [facility] [id number] 11:32:00* Test Item Value Reference Range Comments GLUBED (test code=GLUBED) 164 mg/dL 74-106 Performed by certified cloth mercerizer operator at [facility] B-TYPE NATRIURETIC [id number] 09:49:00* Test Item Value Reference Range Comments B-TYPE NATRIURETIC PEPTIDE (test code=BNP) 35.52 pgram/mL 0-100 [id number] 09:29:00* Test Item Value Reference Range Comments GLUBED (test code=GLUBED) 107 mg/dL 74-106 Performed by certified cloth mercerizer operator at [facility] CBC W/AUTO [id number] 08:57:00* Test Item Value Reference Range Comments WHITE BLOOD CELL (test code=WBC) 4.8 K/mm3 4.5-12.5 RED BLOOD CELL (test code=RBC) 3.67 mill/mm3 4.0-5.8 HEMOGLOBIN (test code=HGB) 10.9 gram/dL 13.0-17.5 HEMATOCRIT (test code=HCT) 33.7 % 42.0-52.0 MEAN CELL VOLUME (test code=MCV) 91.8 fL 80-98 MEAN CELL HGB (test code=MCH) 29.7 picogram 27.0-33.0 MEAN CELL HGB CONCETRATION (test code=MCHC) 32.3 gram/dL 33.0-36.0 RED CELL DISTRIBUTION WIDTH (test code=RDW) 12.6 % 11.6-16.2 RED CELL DISTRIBUTION WIDTH SD (test code=RDW-SD) 42.5 fL 37.0-51.0 PLATELET COUNT (test code=PLT) 150 K/mm3 150-450 MEAN PLATELET VOLUME (test code=MPV) 10.2 fL 6.7-11.0 NEUTROPHIL % (test code=NT%) 57.1 % 39.0-69.0 IMMATURE GRANULOCYTE % (test code=IG%) 0.4 % 0.0-5.0 LYMPHOCYTE % (test code=LY%) 29.6 % 25.0-55.0 MONOCYTE % (test code=MO%) 9.8 % 0.0-10.0 EOSINOPHIL % (test code=EO%) 2.7 % 0.0-5.0 BASOPHIL % (test code=BA%) 0.4 % 0.0-1.0 NUCLEATED RBC % (test code=NRBC%) 0.0 % 0-0 NEUTROPHIL # (test code=NT#) 2.73 K/mm3 1.8-7.7 IMMATURE GRANULOCYTE # (test code=IG#) 0.02 x10 3/uL 0-0.03 LYMPHOCYTE # (test code=LY#) 1.42 K/mm3 1.0-5.0 MONOCYTE # (test code=MO#) 0.47 K/mm3 0-0.8 EOSINOPHIL # (test code=EO#) 0.13 K/mm3 0.0-0.5 BASOPHIL # (test code=BA#) 0.02 K/mm3 0.0-0.2 NUCLEATED RBC # (test code=NRBC#) 0.00 K/mm3 0.0-0.1 MANUAL DIFF REQUIRED (test code=MDIFF) NO, ONLY SCAN NEEDED DIFFERENTIAL [id number] 08:57:00* Test Item Value Reference Range Comments STAIN ACCEPTABILITY (test code=STN ACCEPTABLE) STAIN ACCEPTABLE MORPHOLOGY COMMENT (test code=MOC) NORMAL PLATELET ESTIMATE (test code=PLTEST) ADEQUATE PLATELET MORPHOLOGY (test code=PLTMORPH) NORMAL CBC W/AUTO [id number] 08:43:00* Test Item Value Reference Range Comments WHITE BLOOD CELL (test code=WBC) 4.8 K/mm3 4.5-12.5 RED BLOOD CELL (test code=RBC) 3.67 mill/mm3 4.0-5.8 HEMOGLOBIN (test code=HGB) 10.9 gram/dL 13.0-17.5 HEMATOCRIT (test code=HCT) 33.7 % 42.0-52.0 MEAN CELL VOLUME (test code=MCV) 91.8 fL 80-98 MEAN CELL HGB (test code=MCH) 29.7 picogram 27.0-33.0 MEAN CELL HGB CONCETRATION (test code=MCHC) 32.3 gram/dL 33.0-36.0 RED CELL DISTRIBUTION WIDTH (test code=RDW) 12.6 % 11.6-16.2 RED CELL DISTRIBUTION WIDTH SD (test code=RDW-SD) 42.5 fL 37.0-51.0 PLATELET COUNT (test code=PLT) 150 K/mm3 150-450 MEAN PLATELET VOLUME (test code=MPV) 10.2 fL 6.7-11.0 NEUTROPHIL % (test code=NT%) 57.1 % 39.0-69.0 IMMATURE GRANULOCYTE % (test code=IG%) 0.4 % 0.0-5.0 LYMPHOCYTE % (test code=LY%) 29.6 % 25.0-55.0 MONOCYTE % (test code=MO%) 9.8 % 0.0-10.0 EOSINOPHIL % (test code=EO%) 2.7 % 0.0-5.0 BASOPHIL % (test code=BA%) 0.4 % 0.0-1.0 NUCLEATED RBC % (test code=NRBC%) 0.0 % 0-0 NEUTROPHIL # (test code=NT#) 2.73 K/mm3 1.8-7.7 IMMATURE GRANULOCYTE # (test code=IG#) 0.02 x10 3/uL 0-0.03 LYMPHOCYTE # (test code=LY#) 1.42 K/mm3 1.0-5.0 MONOCYTE # (test code=MO#) 0.47 K/mm3 0-0.8 EOSINOPHIL # (test code=EO#) 0.13 K/mm3 0.0-0.5 BASOPHIL # (test code=BA#) 0.02 K/mm3 0.0-0.2 NUCLEATED RBC # (test code=NRBC#) 0.00 K/mm3 0.0-0.1 MANUAL DIFF REQUIRED (test code=MDIFF) NO, ONLY SCAN NEEDED DIFFERENTIAL [id number] 08:43:00* Test Item Value Reference Range Comments STAIN ACCEPTABILITY (test code=STN ACCEPTABLE) CABOT RINGS (test code=CAB) MORPHOLOGY COMMENT (test code=MOC) PLATELET ESTIMATE (test code=PLTEST) PLATELET MORPHOLOGY (test code=PLTMORPH) CBC W/AUTO [id number] 08:43:00* Test Item Value Reference Range Comments WHITE BLOOD CELL (test code=WBC) 4.8 K/mm3 4.5-12.5 RED BLOOD CELL (test code=RBC) 3.67 mill/mm3 4.0-5.8 HEMOGLOBIN (test code=HGB) 10.9 gram/dL 13.0-17.5 HEMATOCRIT (test code=HCT) 33.7 % 42.0-52.0 MEAN CELL VOLUME (test code=MCV) 91.8 fL 80-98 MEAN CELL HGB (test code=MCH) 29.7 picogram 27.0-33.0 MEAN CELL HGB CONCETRATION (test code=MCHC) 32.3 gram/dL 33.0-36.0 RED CELL DISTRIBUTION WIDTH (test code=RDW) 12.6 % 11.6-16.2 RED CELL DISTRIBUTION WIDTH SD (test code=RDW-SD) 42.5 fL 37.0-51.0 PLATELET COUNT (test code=PLT) 150 K/mm3 150-450 MEAN PLATELET VOLUME (test code=MPV) 10.2 fL 6.7-11.0 NEUTROPHIL % (test code=NT%) 57.1 % 39.0-69.0 IMMATURE GRANULOCYTE % (test code=IG%) 0.4 % 0.0-5.0 LYMPHOCYTE % (test code=LY%) 29.6 % 25.0-55.0 MONOCYTE % (test code=MO%) 9.8 % 0.0-10.0 EOSINOPHIL % (test code=EO%) 2.7 % 0.0-5.0 BASOPHIL % (test code=BA%) 0.4 % 0.0-1.0 NUCLEATED RBC % (test code=NRBC%) 0.0 % 0-0 NEUTROPHIL # (test code=NT#) 2.73 K/mm3 1.8-7.7 IMMATURE GRANULOCYTE # (test code=IG#) 0.02 x10 3/uL 0-0.03 LYMPHOCYTE # (test code=LY#) 1.42 K/mm3 1.0-5.0 MONOCYTE # (test code=MO#) 0.47 K/mm3 0-0.8 EOSINOPHIL # (test code=EO#) 0.13 K/mm3 0.0-0.5 BASOPHIL # (test code=BA#) 0.02 K/mm3 0.0-0.2 NUCLEATED RBC # (test code=NRBC#) 0.00 K/mm3 0.0-0.1 MANUAL DIFF REQUIRED (test code=MDIFF) NO, ONLY SCAN NEEDED DIFFERENTIAL [id number] 08:43:00* Test Item Value Reference Range Comments STAIN ACCEPTABILITY (test code=STN ACCEPTABLE) CABOT RINGS (test code=CAB) MORPHOLOGY COMMENT (test code=MOC) PLATELET ESTIMATE (test code=PLTEST) PLATELET MORPHOLOGY (test code=PLTMORPH) CBC W/AUTO [id number] 08:43:00* Test Item Value Reference Range Comments WHITE BLOOD CELL (test code=WBC) 4.8 K/mm3 4.5-12.5 RED BLOOD CELL (test code=RBC) 3.67 mill/mm3 4.0-5.8 HEMOGLOBIN (test code=HGB) 10.9 gram/dL 13.0-17.5 HEMATOCRIT (test code=HCT) 33.7 % 42.0-52.0 MEAN CELL VOLUME (test code=MCV) 91.8 fL 80-98 MEAN CELL HGB (test code=MCH) 29.7 picogram 27.0-33.0 MEAN CELL HGB CONCETRATION (test code=MCHC) 32.3 gram/dL 33.0-36.0 RED CELL DISTRIBUTION WIDTH (test code=RDW) 12.6 % 11.6-16.2 RED CELL DISTRIBUTION WIDTH SD (test code=RDW-SD) 42.5 fL 37.0-51.0 PLATELET COUNT (test code=PLT) 150 K/mm3 150-450 MEAN PLATELET VOLUME (test code=MPV) 10.2 fL 6.7-11.0 NEUTROPHIL % (test code=NT%) 57.1 % 39.0-69.0 IMMATURE GRANULOCYTE % (test code=IG%) 0.4 % 0.0-5.0 LYMPHOCYTE % (test code=LY%) 29.6 % 25.0-55.0 MONOCYTE % (test code=MO%) 9.8 % 0.0-10.0 EOSINOPHIL % (test code=EO%) 2.7 % 0.0-5.0 BASOPHIL % (test code=BA%) 0.4 % 0.0-1.0 NUCLEATED RBC % (test code=NRBC%) 0.0 % 0-0 NEUTROPHIL # (test code=NT#) 2.73 K/mm3 1.8-7.7 IMMATURE GRANULOCYTE # (test code=IG#) 0.02 x10 3/uL 0-0.03 LYMPHOCYTE # (test code=LY#) 1.42 K/mm3 1.0-5.0 MONOCYTE # (test code=MO#) 0.47 K/mm3 0-0.8 EOSINOPHIL # (test code=EO#) 0.13 K/mm3 0.0-0.5 BASOPHIL # (test code=BA#) 0.02 K/mm3 0.0-0.2 NUCLEATED RBC # (test code=NRBC#) 0.00 K/mm3 0.0-0.1 MANUAL DIFF REQUIRED (test code=MDIFF) NO, ONLY SCAN NEEDED DIFFERENTIAL [id number] 08:43:00* Test Item Value Reference Range Comments STAIN ACCEPTABILITY (test code=STN ACCEPTABLE) MORPHOLOGY COMMENT (test code=MOC) PLATELET ESTIMATE (test code=PLTEST) PLATELET MORPHOLOGY (test code=PLTMORPH) CBC W/AUTO [id number] 08:43:00* Test Item Value Reference Range Comments WHITE BLOOD CELL (test code=WBC) 4.8 K/mm3 4.5-12.5 RED BLOOD CELL (test code=RBC) 3.67 mill/mm3 4.0-5.8 HEMOGLOBIN (test code=HGB) 10.9 gram/dL 13.0-17.5 HEMATOCRIT (test code=HCT) 33.7 % 42.0-52.0 MEAN CELL VOLUME (test code=MCV) 91.8 fL 80-98 MEAN CELL HGB (test code=MCH) 29.7 picogram 27.0-33.0 MEAN CELL HGB CONCETRATION (test code=MCHC) 32.3 gram/dL 33.0-36.0 RED CELL DISTRIBUTION WIDTH (test code=RDW) 12.6 % 11.6-16.2 RED CELL DISTRIBUTION WIDTH SD (test code=RDW-SD) 42.5 fL 37.0-51.0 PLATELET COUNT (test code=PLT) 150 K/mm3 150-450 MEAN PLATELET VOLUME (test code=MPV) 10.2 fL 6.7-11.0 NEUTROPHIL % (test code=NT%) 57.1 % 39.0-69.0 IMMATURE GRANULOCYTE % (test code=IG%) 0.4 % 0.0-5.0 LYMPHOCYTE % (test code=LY%) 29.6 % 25.0-55.0 MONOCYTE % (test code=MO%) 9.8 % 0.0-10.0 EOSINOPHIL % (test code=EO%) 2.7 % 0.0-5.0 BASOPHIL % (test code=BA%) 0.4 % 0.0-1.0 NUCLEATED RBC % (test code=NRBC%) 0.0 % 0-0 NEUTROPHIL # (test code=NT#) 2.73 K/mm3 1.8-7.7 IMMATURE GRANULOCYTE # (test code=IG#) 0.02 x10 3/uL 0-0.03 LYMPHOCYTE # (test code=LY#) 1.42 K/mm3 1.0-5.0 MONOCYTE # (test code=MO#) 0.47 K/mm3 0-0.8 EOSINOPHIL # (test code=EO#) 0.13 K/mm3 0.0-0.5 BASOPHIL # (test code=BA#) 0.02 K/mm3 0.0-0.2 NUCLEATED RBC # (test code=NRBC#) 0.00 K/mm3 0.0-0.1 MANUAL DIFF REQUIRED (test code=MDIFF) NO, ONLY SCAN NEEDED DIFFERENTIAL [id number] 08:43:00* Test Item Value Reference Range Comments STAIN ACCEPTABILITY (test code=STN ACCEPTABLE) CABOT RINGS (test code=CAB) MORPHOLOGY COMMENT (test code=MOC) PLATELET ESTIMATE (test code=PLTEST) PLATELET MORPHOLOGY (test code=PLTMORPH) BASIC METABOLIC [id number] 08:32:00* Test Item Value Reference Range Comments SODIUM (test code=NA) 137 mmol/L 136-145 POTASSIUM (test code=K) 3.8 mmol/L 3.5-5.1 CHLORIDE (test code=CL) 102.0 mmol/L 98-107 CARBON DIOXIDE (test code=CO2) 24.0 mmol/L 21-32 ANION GAP (test code=GAP) 14.8 10-20 GLUCOSE (test code=GLU) 128 mg/dL 74-106 BLOOD UREA NITROGEN (test code=BUN) 8 mg/dL 7-18 GLOMERULAR FILTRATION RATE (test code=GFR) > 60 mL/min >=60 Estimated GFR by using Modified MDRD formula.Chronic kidney disease is defined as either kidney damageor GFR <60 mL/min/1.73 m2 for >3 months. CREATININE (test code=CREAT) 0.60 mg/dL 0.7-1.3 BUN/CREATININE RATIO (test code=BUN/CREA) 13.3 10-20 CALCIUM (test code=CA) 8.6 mg/dL 8.5-10.1 [id number] 08:32:00* Test Item Value Reference Range Comments PHOSPHORUS (test code=PHOS) 4.1 mg/dL 2.5-4.9 [id number] 08:32:00* Test Item Value Reference Range Comments MAGNESIUM (test code=MAG) 2.1 mg/dL 1.8-2.4 CALCIUM [id number] 08:32:00* Test Item Value Reference Range Comments CALCIUM IONIZED (test code=MICHAEL) 1.23 mmol/L 1.12-1.32 [id number] 08:31:00* Test Item Value Reference Range Comments TROPONIN-I (test code=TROPI) 2.350 ng/mL 0-0.045 Results called to [id number] by [email or web address] 12/30/18 0831Critical results verified and read back by Nurse? Y BASIC METABOLIC [id number] 07:46:00* Test Item Value Reference Range Comments SODIUM (test code=NA) 137 mmol/L 136-145 POTASSIUM (test code=K) 3.8 mmol/L 3.5-5.1 CHLORIDE (test code=CL) 102.0 mmol/L 98-107 CARBON DIOXIDE (test code=CO2) 24.0 mmol/L 21-32 ANION GAP (test code=GAP) 14.8 10-20 GLUCOSE (test code=GLU) 128 mg/dL 74-106 BLOOD UREA NITROGEN (test code=BUN) 8 mg/dL 7-18 GLOMERULAR FILTRATION RATE (test code=GFR) > 60 mL/min >=60 Estimated GFR by using Modified MDRD formula.Chronic kidney disease is defined as either kidney damageor GFR <60 mL/min/1.73 m2 for >3 months. CREATININE (test code=CREAT) 0.60 mg/dL 0.7-1.3 BUN/CREATININE RATIO (test code=BUN/CREA) 13.3 10-20 CALCIUM (test code=CA) 8.6 mg/dL 8.5-10.1 [id number] 07:46:00* Test Item Value Reference Range Comments PHOSPHORUS (test code=PHOS) 4.1 mg/dL 2.5-4.9 [id number] 07:46:00* Test Item Value Reference Range Comments MAGNESIUM (test code=MAG) 2.1 mg/dL 1.8-2.4 CALCIUM [id number] 07:46:00* Test Item Value Reference Range Comments CALCIUM IONIZED (test code=MICHAEL) mmol/L 1.12-1.32 - XR CHEST 1 [id number] 06:01:00 FAX: Shantel Caballero MD [phone] [place]: [address] St: ADM FAX: Dave Reeves Name: JATIN HOPSON [facility] : 1975 Age/S: 43/M [address] [facility] Unit #: [id number] Loc: V.S[address] [place] [address] Phys: Dave Reeves Acct: [id number] Dis Date: Status: ADM IN PHONE #: [phone] Exam Date: 12/30/2018515 FAX #: [phone] Reason: balloon pump in place EXAMS: CPT CODE: [id number] XR CHEST 1 V 30198 EXAM: Portable chest one view. Location code:J9 HISTORY: Balloon pump COMPARISON: 12/29/2018. COMMENT: The balloon pump marker is not well identified on this exam.. The lungs and pleural spaces are clear. Lungs are normally expanded. The aorta, pulmonary vasculature and mediastinum are within normal limits. Cardiac silhouette is normal in size and contour. Visualized skeletal structures are unremarkable. IMPRESSION: No active disease in the chest. at 0601 Reported and signed by: Arturo Robb M.D. CC: Shantel Garcia MD; Dave Reeves Technologist: PHIL MENDOZA JR Trnscrd Date/Time/By: 12/30/2018 (06) : By: [email or web address] Orig Print D/T: S: 12/30/2018 (0604) PAGE 1 Signed Report [id number] 22:44:00* Test Item Value Reference Range Comments GLUBED (test code=GLUBED) 114 mg/dL 74-106 Performed by certified cloth mercerizer operator at [facility] [id number] 16:29:00* Test Item Value Reference Range Comments GLUBED (test code=GLUBED) 142 mg/dL 74-106 Performed by certified cloth mercerizer operator at [facility] [id number] 11:01:00* Test Item Value Reference Range Comments GLUBED (test code=GLUBED) 122 mg/dL 74-106 Performed by certified cloth mercerizer operator at [facility] BASIC METABOLIC [id number] 07:51:00* Test Item Value Reference Range Comments SODIUM (test code=NA) 134 mmol/L 136-145 POTASSIUM (test code=K) 3.9 mmol/L 3.5-5.1 CHLORIDE (test code=CL) 101.0 mmol/L 98-107 CARBON DIOXIDE (test code=CO2) 25.0 mmol/L 21-32 ANION GAP (test code=GAP) 11.9 10-20 GLUCOSE (test code=GLU) 159 mg/dL 74-106 BLOOD UREA NITROGEN (test code=BUN) 10 mg/dL 7-18 GLOMERULAR FILTRATION RATE (test code=GFR) > 60 mL/min >=60 Estimated GFR by using Modified MDRD formula.Chronic kidney disease is defined as either kidney damageor GFR <60 mL/min/1.73 m2 for >3 months. CREATININE (test code=CREAT) 0.80 mg/dL 0.7-1.3 BUN/CREATININE RATIO (test code=BUN/CREA) 12.5 10-20 CALCIUM (test code=CA) 9.0 mg/dL 8.5-10.1 [id number] 07:51:00* Test Item Value Reference Range Comments PHOSPHORUS (test code=PHOS) 3.6 mg/dL 2.5-4.9 [id number] 07:51:00* Test Item Value Reference Range Comments MAGNESIUM (test code=MAG) 2.3 mg/dL 1.8-2.4 CALCIUM [id number] 07:51:00* Test Item Value Reference Range Comments CALCIUM IONIZED (test code=MICHAEL) 1.26 mmol/L 1.12-1.32 BASIC METABOLIC [id number] 07:42:00* Test Item Value Reference Range Comments SODIUM (test code=NA) mmol/L 136-145 POTASSIUM (test code=K) mmol/L 3.5-5.1 CHLORIDE (test code=CL) mmol/L 98-107 CARBON DIOXIDE (test code=CO2) mmol/L 21-32 ANION GAP (test code=GAP) 10-20 GLUCOSE (test code=GLU) mg/dL 74-106 BLOOD UREA NITROGEN (test code=BUN) mg/dL 7-18 GLOMERULAR FILTRATION RATE (test code=GFR) mL/min >=60 CREATININE (test code=CREAT) mg/dL 0.7-1.3 BUN/CREATININE RATIO (test code=BUN/CREA) 10-20 CALCIUM (test code=CA) mg/dL 8.5-10.1 [id number] 07:42:00* Test Item Value Reference Range Comments PHOSPHORUS (test code=PHOS) mg/dL 2.5-4.9 [id number] 07:42:00* Test Item Value Reference Range Comments MAGNESIUM (test code=MAG) mg/dL 1.8-2.4 CALCIUM [id number] 07:42:00* Test Item Value Reference Range Comments CALCIUM IONIZED (test code=MICHAEL) 1.26 mmol/L 1.12-1.32 [id number] 07:36:00* Test Item Value Reference Range Comments GLUBED (test code=GLUBED) 179 mg/dL 74-106 Performed by certified cloth mercerizer operator at [facility] CBC W/AUTO [id number] 07:31:00* Test Item Value Reference Range Comments WHITE BLOOD CELL (test code=WBC) 9.4 K/mm3 4.5-12.5 RED BLOOD CELL (test code=RBC) 4.47 mill/mm3 4.0-5.8 HEMOGLOBIN (test code=HGB) 12.8 gram/dL 13.0-17.5 HEMATOCRIT (test code=HCT) 41.0 % 42.0-52.0 MEAN CELL VOLUME (test code=MCV) 91.7 fL 80-98 MEAN CELL HGB (test code=MCH) 28.6 picogram 27.0-33.0 MEAN CELL HGB CONCETRATION (test code=MCHC) 31.2 gram/dL 33.0-36.0 RED CELL DISTRIBUTION WIDTH (test code=RDW) 12.9 % 11.6-16.2 RED CELL DISTRIBUTION WIDTH SD (test code=RDW-SD) 43.5 fL 37.0-51.0 PLATELET COUNT (test code=PLT) 251 K/mm3 150-450 MEAN PLATELET VOLUME (test code=MPV) 10.1 fL 6.7-11.0 NEUTROPHIL % (test code=NT%) 57.9 % 39.0-69.0 IMMATURE GRANULOCYTE % (test code=IG%) 0.5 % 0.0-5.0 LYMPHOCYTE % (test code=LY%) 29.0 % 25.0-55.0 MONOCYTE % (test code=MO%) 10.9 % 0.0-10.0 EOSINOPHIL % (test code=EO%) 1.2 % 0.0-5.0 BASOPHIL % (test code=BA%) 0.5 % 0.0-1.0 NUCLEATED RBC % (test code=NRBC%) 0.0 % 0-0 NEUTROPHIL # (test code=NT#) 5.44 K/mm3 1.8-7.7 IMMATURE GRANULOCYTE # (test code=IG#) 0.05 x10 3/uL 0-0.03 LYMPHOCYTE # (test code=LY#) 2.72 K/mm3 1.0-5.0 MONOCYTE # (test code=MO#) 1.02 K/mm3 0-0.8 EOSINOPHIL # (test code=EO#) 0.11 K/mm3 0.0-0.5 BASOPHIL # (test code=BA#) 0.05 K/mm3 0.0-0.2 NUCLEATED RBC # (test code=NRBC#) 0.00 K/mm3 0.0-0.1 MANUAL DIFF REQUIRED (test code=MDIFF) NO - XR CHEST 1 [id number] 05:44:00 FAX: Shantel Caballero MD [phone] [place]: St: ADM FAX: Dave Reeves Name: JATIN HOPSON [facility] : 1975 Age/S: 43/M [address] [facility] Unit #: [id number] Loc: [address] [address] Phys: Dave Reeves Acct: [id number] Dis Date: Status: ADM IN PHONE #: [phone] Exam Date: 12/29/2018514 FAX #: [phone] Reason: balloon pump in place EXAMS: CPT CODE: [id number] XR CHEST 1 V 10176 EXAM: Portable chest one view. Location code:J9 HISTORY: Balloon pump COMPARISON: 10/28/2018 COMMENT: The balloon pump marker is not well identified on this exam.. The lungs and pleural spaces are clear. Lungs are normally expanded. The aorta, pulmonary vasculature and mediastinum are within normal limits. Cardiac silhouette is normal in size and contour. Visualized skeletal structures are unremarkable. IMPRESSION: No active disease in the chest. at 0530 Reported and signed by: Arturo Robb M.D. CC: Shantel Garcia MD; Dave Reeves Technologist: PHIL Abrams Trnscrd Date/Time/By: 12/29/2018 (0553) : By: [email or web address] Orig Print D/T: S: 12/29/2018 (0663) PAGE 1 Signed Report - CT HEAD/BRAIN W/O [id number] 22:30:00 Name: JATIN HOPSON [facility] : 1975 Age/S: 43 / M [address] [facility] Unit #: [id number] Loc: [place] [address] Phys: Stacy Garcia MD Acct: [id number] Di s Date: Status: ADM IN PHONE #: Exam Date: 12/28/20182225 FAX #: [phone] Reason: HEADACHE PERSISTENT EXAMS: CPT CODE: [id number] CT HEAD/BRAIN W/O CONT 67467 REASON FOR EXAM: HEADACHE PERSISTENT EXAM ORDER DATE: 12/28/2018 7:01 PM Ordering M.D.: Shantel Garcia MD PROCEDURE: - CT HEAD/BRAIN W/O CONT COMPARISON: FINDINGS: CT images of the brain were obtained without IV contrast. Dose modulation, iterative reconstruct ion, and/or weight based adjustment of the MA/KV was utilized to reduce th e radiation dose to as low as reasonably achievable. The br ain parenchyma is within normal limits. The cruz-white matter delineation is unremarkable. The ventricles, cisterns, and sulci are unremarkable. The re is no evidence of hemorrhage, mass, mass effect. There is no evidence of acute or old infarct. The calvarium is intact. IMPRESS ION: Unremarkable brain. at 2230 Reported and signed by: Alexsander Morales M.D. CC: Shantel Garcia MD Technologist:ROSALEE KOENIG, RT(R) CT CTDI: DLP: Trnscb Date/Time: 12/28/2018 (2229) [email or web address] Orig Print D/T: S: 12/28/2018 (3163) PAGE 1 Signed Report [id number] 21:22:00* Test Item Value Reference Range Comments GLUBED (test code=GLUBED) 145 mg/dL 74-106 Performed by certified cloth mercerizer operator at [facility] [id number] 16:26:00* Test Item Value Reference Range Comments GLUBED (test code=GLUBED) 174 mg/dL 74-106 Performed by certified cloth mercerizer operator at [facility] [id number] 14:45:00* Test Item Value Reference Range Comments GLUBED (test code=GLUBED) 149 mg/dL 74-106 Performed by certified cloth mercerizer operator at [facility] COAGULATION TIME [id number] 10:45:00* Test Item Value Reference Range Comments COAGULATION TIME ACTIVATED (test code=ACT) 99 seconds 62.8-88.0 [id number] 10:31:00* Test Item Value Reference Range Comments GLUBED (test code=GLUBED) 144 mg/dL 74-106 Performed by certified cloth mercerizer operator at [facility] - XR CHEST 1 [id number] 06:58:00 FAX: Shantel Caballero MD [phone] [place]: St: ADM FAX: Dave Reeves Name: JATIN HOPSON [facility] : 1975 Age/S: 43/M [address] [facility] Unit #: [id number] Loc: [address] [address] Phys: Dave Reeves Acct: [id number] Dis Date: Status: ADM IN PHONE #: [phone] Exam Date: 12/28/2018 05 FAX #: [phone] Reason: balloon pump in place EXAMS: CPT CODE: [id number] XR CHEST 1 V 21420 EXAM: Portable chest one view. Location code:J9 HISTORY: Balloon pump COMPARISON: 12/27/2018 COMMENT: Stable position of balloon pump.. The lungs and pleural spaces are clear. Lungs are normally expanded. The aorta, pulmonary vasculature and mediastinum are within normal limits. Cardiac silhouette is normal in size and contour. Visualized skeletal structures are unremarkable. IMPRESSION: No active disease in the chest. at 0658 Reported and signed by: Arturo Robb M.D. CC: Shantel Garcia MD; Dave Reeves Technologist: PHIL MENDOZA JR; Mae Abrams Trnscrd Date/Time/By: 12/28/2018 (0658) : By: [email or web address] Orig Print D/T: S: 12/28/2018 (0764) PAGE 1 Signed Report B-TYPE NATRIURETIC [id number] 06:42:00* Test Item Value Reference Range Comments B-TYPE NATRIURETIC PEPTIDE (test code=BNP) 18.6 pgram/mL 0-100 [id number] 06:21:00* Test Item Value Reference Range Comments GLUBED (test code=GLUBED) 180 mg/dL 74-106 Performed by certified cloth mercerizer operator at [facility] [id number] 05:14:00* Test Item Value Reference Range Comments GLYCOSYLATED HEMOGLOBIN (HA1C) (test code=GLYHGB) 10.7 % HbA1 4.8-6.0 ESTIMATED AVERAGE GLUCOSE (test code=EAG) 260 MG/DL THROMBOPLASTIN TIME [id number] 04:50:00* Test Item Value Reference Range Comments THROMBOPLASTIN TIME PARTIAL (test code=PTT) 103.9 seconds 25.0-36.5 Results called to [id number] by V.[email or web address].RA1 12/28/18 0450Critical results verified and read back by Nurse? Y IS PATIENT ON ANTICOAGULANTS? YLIST ANTICOAGULANTS HEPARINLIPID PROFILE (CORONARY RISK)2018-12-28 04:46:00* Test Item Value Reference Range Comments TRIGLYCERIDES (test code=TRIG) 179 mg/dL 20-150 CHOLESTEROL (test code=CHOL) 198 mg/dL 0-200 CHOLESTEROL/HDL RATIO (test code=CHOLHDL) 4.0 RATIO 0-4.9 RISK ASSOCIATED WITH CHOL/HDL RATIOS: Risk Male Female1/2 AVERAGE 3.43 3.27AVERAGE 4.97 4.442X AVERAGE 9.55 7.053X AVERAGE 23.39 11.04 REFERENCE VALUE IS RELATED TO RISK LEVELS ASRECOMMENDED BY THE RADHA. HEART, LUNG, AND BLOOD INST. HDL CHOLESTEROL (test code=HDL) 42 mg/dL 40-60 LIPOPROTEIN LDL (test code=LDL) 139 mg/dL 100-129 RN PERSONNEL, CONTACT PHYSICIAN IMMEDIATELY IF THIS IS A STROKE, AMI OR CAROTID STENOSIS PATIENT WHEN THE LDL >100 (1ST OCCURENCE, THIS ADMISSION) Reference Interval: mg/dL mmol/L Optimal <100 <2.6Near/above optimal 100-129 2.6- 3.3Borderline High 130-159 3.4-4.1High 160-189 4.1-4.9Very High >=190 >=4.9=========This LDL result is a direct measurement.========= THYROID PROFILE [id number] 04:46:00* Test Item Value Reference Range Comments T3 UPTAKE (test code=T3UP) 37.0 % 30.0-40.0 T4 (THYROXINE) (test code=T4) 7.5 ug/dL 4.5-13.9 T7 (FREE THYROXINE INDEX) (test code=T7) 2.77 FTI 1.3-5.1 THYROID STIMULATING HORMONE (test code=TSH) 1.100 uIU/mL 0.36-3.74 TSH REFERENCE RANGES: EUTHYROID: 0.35 - 4.3 mIU/mL HYPO : > 5.5 mIU/mL HYPER : < 0.35 mIU/mL [id number] 04:46:00* Test Item Value Reference Range Comments TROPONIN-I (test code=TROPI) 5.060 ng/mL 0-0.045 BASIC METABOLIC [id number] 04:45:00* Test Item Value Reference Range Comments SODIUM (test code=NA) 133 mmol/L 136-145 POTASSIUM (test code=K) 3.8 mmol/L 3.5-5.1 CHLORIDE (test code=CL) 100.0 mmol/L 98-107 CARBON DIOXIDE (test code=CO2) 22.0 mmol/L 21-32 ANION GAP (test code=GAP) 14.8 10-20 GLUCOSE (test code=GLU) 178 mg/dL 74-106 BLOOD UREA NITROGEN (test code=BUN) 13 mg/dL 7-18 GLOMERULAR FILTRATION RATE (test code=GFR) > 60 mL/min >=60 Estimated GFR by using Modified MDRD formula.Chronic kidney disease is defined as either kidney damageor GFR <60 mL/min/1.73 m2 for >3 months. CREATININE (test code=CREAT) 0.70 mg/dL 0.7-1.3 BUN/CREATININE RATIO (test code=BUN/CREA) 18.6 10-20 CALCIUM (test code=CA) 7.5 mg/dL 8.5-10.1 [id number] 04:45:00* Test Item Value Reference Range Comments PHOSPHORUS (test code=PHOS) 2.9 mg/dL 2.5-4.9 [id number] 04:45:00* Test Item Value Reference Range Comments MAGNESIUM (test code=MAG) 2.2 mg/dL 1.8-2.4 Results called to by V.[email or web address].AG1 12/28/18 0445Critical results verified and read back by Nurse? CALCIUM [id number] 04:45:00* Test Item Value Reference Range Comments CALCIUM IONIZED (test code=MICHAEL) 1.08 mmol/L 1.12-1.32 BASIC METABOLIC [id number] 04:34:00* Test Item Value Reference Range Comments SODIUM (test code=NA) 133 mmol/L 136-145 POTASSIUM (test code=K) 3.8 mmol/L 3.5-5.1 CHLORIDE (test code=CL) 100.0 mmol/L 98-107 CARBON DIOXIDE (test code=CO2) mmol/L 21-32 ANION GAP (test code=GAP) 10-20 GLUCOSE (test code=GLU) mg/dL 74-106 BLOOD UREA NITROGEN (test code=BUN) mg/dL 7-18 GLOMERULAR FILTRATION RATE (test code=GFR) mL/min >=60 CREATININE (test code=CREAT) mg/dL 0.7-1.3 BUN/CREATININE RATIO (test code=BUN/CREA) 10-20 CALCIUM (test code=CA) 7.5 mg/dL 8.5-10.1 [id number] 04:34:00* Test Item Value Reference Range Comments PHOSPHORUS (test code=PHOS) mg/dL 2.5-4.9 [id number] 04:34:00* Test Item Value Reference Range Comments MAGNESIUM (test code=MAG) mg/dL 1.8-2.4 CALCIUM [id number] 04:34:00* Test Item Value Reference Range Comments CALCIUM IONIZED (test code=MICHAEL) 1.08 mmol/L 1.12-1.32 BASIC METABOLIC [id number] 04:23:00* Test Item Value Reference Range Comments SODIUM (test code=NA) 133 mmol/L 136-145 POTASSIUM (test code=K) 3.8 mmol/L 3.5-5.1 CHLORIDE (test code=CL) 100.0 mmol/L 98-107 CARBON DIOXIDE (test code=CO2) mmol/L 21-32 ANION GAP (test code=GAP) 10-20 GLUCOSE (test code=GLU) mg/dL 74-106 BLOOD UREA NITROGEN (test code=BUN) mg/dL 7-18 GLOMERULAR FILTRATION RATE (test code=GFR) mL/min >=60 CREATININE (test code=CREAT) mg/dL 0.7-1.3 BUN/CREATININE RATIO (test code=BUN/CREA) 10-20 CALCIUM (test code=CA) 7.5 mg/dL 8.5-10.1 [id number] 04:23:00* Test Item Value Reference Range Comments PHOSPHORUS (test code=PHOS) mg/dL 2.5-4.9 [id number] 04:23:00* Test Item Value Reference Range Comments MAGNESIUM (test code=MAG) mg/dL 1.8-2.4 CALCIUM [id number] 04:23:00* Test Item Value Reference Range Comments CALCIUM IONIZED (test code=MICHAEL) mmol/L 1.12-1.32 CBC W/AUTO [id number] 04:01:00* Test Item Value Reference Range Comments WHITE BLOOD CELL (test code=WBC) 10.6 K/mm3 4.5-12.5 RED BLOOD CELL (test code=RBC) 4.49 mill/mm3 4.0-5.8 HEMOGLOBIN (test code=HGB) 13.4 gram/dL 13.0-17.5 HEMATOCRIT (test code=HCT) 40.6 % 42.0-52.0 MEAN CELL VOLUME (test code=MCV) 90.4 fL 80-98 MEAN CELL HGB (test code=MCH) 29.8 picogram 27.0-33.0 MEAN CELL HGB CONCETRATION (test code=MCHC) 33.0 gram/dL 33.0-36.0 RED CELL DISTRIBUTION WIDTH (test code=RDW) 12.8 % 11.6-16.2 RED CELL DISTRIBUTION WIDTH SD (test code=RDW-SD) 42.6 fL 37.0-51.0 PLATELET COUNT (test code=PLT) 252 K/mm3 150-450 MEAN PLATELET VOLUME (test code=MPV) 10.0 fL 6.7-11.0 NEUTROPHIL % (test code=NT%) 73.5 % 39.0-69.0 IMMATURE GRANULOCYTE % (test code=IG%) 0.5 % 0.0-5.0 LYMPHOCYTE % (test code=LY%) 16.7 % 25.0-55.0 MONOCYTE % (test code=MO%) 8.4 % 0.0-10.0 EOSINOPHIL % (test code=EO%) 0.6 % 0.0-5.0 BASOPHIL % (test code=BA%) 0.3 % 0.0-1.0 NUCLEATED RBC % (test code=NRBC%) 0.0 % 0-0 NEUTROPHIL # (test code=NT#) 7.80 K/mm3 1.8-7.7 IMMATURE GRANULOCYTE # (test code=IG#) 0.05 x10 3/uL 0-0.03 LYMPHOCYTE # (test code=LY#) 1.77 K/mm3 1.0-5.0 MONOCYTE # (test code=MO#) 0.89 K/mm3 0-0.8 EOSINOPHIL # (test code=EO#) 0.06 K/mm3 0.0-0.5 BASOPHIL # (test code=BA#) 0.03 K/mm3 0.0-0.2 NUCLEATED RBC # (test code=NRBC#) 0.00 K/mm3 0.0-0.1 MANUAL DIFF REQUIRED (test code=MDIFF) NO CBC W/AUTO [id number] 04:00:00* Test Item Value Reference Range Comments WHITE BLOOD CELL (test code=WBC) K/mm3 4.5-12.5 RED BLOOD CELL (test code=RBC) mill/mm3 4.0-5.8 HEMOGLOBIN (test code=HGB) 13.4 gram/dL 13.0-17.5 HEMATOCRIT (test code=HCT) % 42.0-52.0 MEAN CELL VOLUME (test code=MCV) fL 80-98 MEAN CELL HGB (test code=MCH) picogram 27.0-33.0 MEAN CELL HGB CONCETRATION (test code=MCHC) gram/dL 33.0-36.0 RED CELL DISTRIBUTION WIDTH (test code=RDW) % 11.6-16.2 RED CELL DISTRIBUTION WIDTH SD (test code=RDW-SD) fL 37.0-51.0 PLATELET COUNT (test code=PLT) K/mm3 150-450 MEAN PLATELET VOLUME (test code=MPV) fL 6.7-11.0 NEUTROPHIL % (test code=NT%) % 39.0-69.0 IMMATURE GRANULOCYTE % (test code=IG%) % 0.0-5.0 LYMPHOCYTE % (test code=LY%) % 25.0-55.0 MONOCYTE % (test code=MO%) % 0.0-10.0 EOSINOPHIL % (test code=EO%) % 0.0-5.0 BASOPHIL % (test code=BA%) % 0.0-1.0 NEUTROPHIL # (test code=NT#) K/mm3 1.8-7.7 LYMPHOCYTE # (test code=LY#) K/mm3 1.0-5.0 MONOCYTE # (test code=MO#) K/mm3 0-0.8 EOSINOPHIL # (test code=EO#) K/mm3 0.0-0.5 BASOPHIL # (test code=BA#) K/mm3 0.0-0.2 THROMBOPLASTIN TIME [id number] 21:31:00* Test Item Value Reference Range Comments THROMBOPLASTIN TIME PARTIAL (test code=PTT) 44.1 seconds 25.0-36.5 IS PATIENT ON ANTICOAGULANTS? YLIST ANTICOAGULANTS [id number] 21:03:00* Test Item Value Reference Range Comments GLUBED (test code=GLUBED) 175 mg/dL 74-106 Performed by certified cloth mercerizer operator at [facility] THROMBOPLASTIN TIME [id number] 16:17:00* Test Item Value Reference Range Comments THROMBOPLASTIN TIME PARTIAL (test code=PTT) 49.2 seconds 25.0-36.5 IS PATIENT ON ANTICOAGULANTS? YLIST ANTICOAGULANTS [id number] 15:53:00* Test Item Value Reference Range Comments GLUBED (test code=GLUBED) 190 mg/dL 74-106 Performed by certified cloth mercerizer operator at [facility] [id number] 13:04:00* Test Item Value Reference Range Comments GLUBED (test code=GLUBED) 193 mg/dL 74-106 Performed by certified cloth mercerizer operator at [facility] THROMBOPLASTIN TIME [id number] 10:33:00* Test Item Value Reference Range Comments THROMBOPLASTIN TIME PARTIAL (test code=PTT) 46.8 seconds 25.0-36.5 IS PATIENT ON ANTICOAGULANTS? YLIST ANTICOAGULANTS HEPARIN- XR CHEST 1 V 2018-12-27 07:16:00 FAX: Rosa Thomas MD [phone] [place]: B St: ADM FAX: Dave Reeves Name: JATIN HOPSON [facility] : 1975 Age/S: 43/M [facility] [facility] Unit #: [id number] Loc: [place] [address] Phys: Dave Reeves Acct: [id number] Dis Date: Status: ADM IN PHONE #: [phone] Exam Date: 12/27/2018517 FAX #: [phone] Reason: balloon pump in place EXAMS: CPT CODE: [id number] XR CHEST 1 V 48760 EXAM: Chest x-ray, one view; INFORMATION: STEMI; balloon pump; IMPRESSION: Balloon pump still in place, deflated; Mild basilar atelectatic changes and probable small left pleural effusion. Overall, no major changes. at 0716 Reported and signed by: Darci Vazquez M.D. CC: Rosa Magaña MD; Dave Reeves Technologist: PHIL Abrams Trnscrd Date/Time/By: 12/27/2018 (0738) : By: Vandana Orig Print D/T: S: 12/27/2018 (1033) PAGE 1 Signed Report [id number] 07:00:00* Test Item Value Reference Range Comments GLUBED (test code=GLUBED) 259 mg/dL 74-106 Performed by certified cloth mercerizer operator at [facility] COAGULATION TIME [id number] 06:59:00* Test Item Value Reference Range Comments COAGULATION TIME ACTIVATED (test code=ACT) 368 seconds 62.8-88.0 COAGULATION TIME [id number] 06:59:00* Test Item Value Reference Range Comments COAGULATION TIME ACTIVATED (test code=ACT) 241 seconds 62.8-88.0 B-TYPE NATRIURETIC [id number] 05:02:00* Test Item Value Reference Range Comments B-TYPE NATRIURETIC PEPTIDE (test code=BNP) 20.73 pgram/mL 0-100 [id number] 04:37:00* Test Item Value Reference Range Comments TROPONIN-I (test code=TROPI) 10.600 ng/mL 0-0.045 Results called to [id number] by V.LAB.AG1 12/27/18 0436Critical results verified and read back by Nurse? Y BASIC METABOLIC [id number] 04:32:00* Test Item Value Reference Range Comments SODIUM (test code=NA) 134 mmol/L 136-145 POTASSIUM (test code=K) 3.8 mmol/L 3.5-5.1 CHLORIDE (test code=CL) 103.0 mmol/L 98-107 CARBON DIOXIDE (test code=CO2) 21.0 mmol/L 21-32 ANION GAP (test code=GAP) 13.8 10-20 GLUCOSE (test code=GLU) 241 mg/dL 74-106 BLOOD UREA NITROGEN (test code=BUN) 17 mg/dL 7-18 GLOMERULAR FILTRATION RATE (test code=GFR) > 60 mL/min >=60 Estimated GFR by using Modified MDRD formula.Chronic kidney disease is defined as either kidney damageor GFR <60 mL/min/1.73 m2 for >3 months. CREATININE (test code=CREAT) 1.00 mg/dL 0.7-1.3 BUN/CREATININE RATIO (test code=BUN/CREA) 17.0 10-20 CALCIUM (test code=CA) 7.5 mg/dL 8.5-10.1 [id number] 04:32:00* Test Item Value Reference Range Comments PHOSPHORUS (test code=PHOS) 3.2 mg/dL 2.5-4.9 [id number] 04:32:00* Test Item Value Reference Range Comments MAGNESIUM (test code=MAG) 1.9 mg/dL 1.8-2.4 CALCIUM [id number] 04:32:00* Test Item Value Reference Range Comments CALCIUM IONIZED (test code=MICHAEL) 1.20 mmol/L 1.12-1.32 BASIC METABOLIC [id number] 04:28:00* Test Item Value Reference Range Comments SODIUM (test code=NA) 134 mmol/L 136-145 POTASSIUM (test code=K) 3.8 mmol/L 3.5-5.1 CHLORIDE (test code=CL) 103.0 mmol/L 98-107 CARBON DIOXIDE (test code=CO2) mmol/L 21-32 ANION GAP (test code=GAP) 10-20 GLUCOSE (test code=GLU) mg/dL 74-106 BLOOD UREA NITROGEN (test code=BUN) mg/dL 7-18 GLOMERULAR FILTRATION RATE (test code=GFR) mL/min >=60 CREATININE (test code=CREAT) mg/dL 0.7-1.3 BUN/CREATININE RATIO (test code=BUN/CREA) 10-20 CALCIUM (test code=CA) mg/dL 8.5-10.1 [id number] 04:28:00* Test Item Value Reference Range Comments PHOSPHORUS (test code=PHOS) mg/dL 2.5-4.9 [id number] 04:28:00* Test Item Value Reference Range Comments MAGNESIUM (test code=MAG) mg/dL 1.8-2.4 CALCIUM [id number] 04:28:00* Test Item Value Reference Range Comments CALCIUM IONIZED (test code=MICHAEL) 1.20 mmol/L 1.12-1.32 THROMBOPLASTIN TIME [id number] 04:28:00* Test Item Value Reference Range Comments THROMBOPLASTIN TIME PARTIAL (test code=PTT) 65.8 seconds 25.0-36.5 IS PATIENT ON ANTICOAGULANTS? YLIST ANTICOAGULANTS HEPARINBASIC METABOLIC [id number] 04:15:00* Test Item Value Reference Range Comments SODIUM (test code=NA) mmol/L 136-145 POTASSIUM (test code=K) mmol/L 3.5-5.1 CHLORIDE (test code=CL) mmol/L 98-107 CARBON DIOXIDE (test code=CO2) mmol/L 21-32 ANION GAP (test code=GAP) 10-20 GLUCOSE (test code=GLU) mg/dL 74-106 BLOOD UREA NITROGEN (test code=BUN) mg/dL 7-18 GLOMERULAR FILTRATION RATE (test code=GFR) mL/min >=60 CREATININE (test code=CREAT) mg/dL 0.7-1.3 BUN/CREATININE RATIO (test code=BUN/CREA) 10-20 CALCIUM (test code=CA) mg/dL 8.5-10.1 [id number] 04:15:00* Test Item Value Reference Range Comments PHOSPHORUS (test code=PHOS) mg/dL 2.5-4.9 [id number] 04:15:00* Test Item Value Reference Range Comments MAGNESIUM (test code=MAG) mg/dL 1.8-2.4 CALCIUM [id number] 04:15:00* Test Item Value Reference Range Comments CALCIUM IONIZED (test code=MICHAEL) 1.20 mmol/L 1.12-1.32 CBC W/AUTO [id number] 04:06:00* Test Item Value Reference Range Comments WHITE BLOOD CELL (test code=WBC) 12.2 K/mm3 4.5-12.5 RED BLOOD CELL (test code=RBC) 4.79 mill/mm3 4.0-5.8 HEMOGLOBIN (test code=HGB) 14.3 gram/dL 13.0-17.5 HEMATOCRIT (test code=HCT) 43.3 % 42.0-52.0 MEAN CELL VOLUME (test code=MCV) 90.4 fL 80-98 MEAN CELL HGB (test code=MCH) 29.9 picogram 27.0-33.0 MEAN CELL HGB CONCETRATION (test code=MCHC) 33.0 gram/dL 33.0-36.0 RED CELL DISTRIBUTION WIDTH (test code=RDW) 12.9 % 11.6-16.2 RED CELL DISTRIBUTION WIDTH SD (test code=RDW-SD) 42.5 fL 37.0-51.0 PLATELET COUNT (test code=PLT) 301 K/mm3 150-450 MEAN PLATELET VOLUME (test code=MPV) 10.4 fL 6.7-11.0 NEUTROPHIL % (test code=NT%) 72.0 % 39.0-69.0 IMMATURE GRANULOCYTE % (test code=IG%) 0.6 % 0.0-5.0 LYMPHOCYTE % (test code=LY%) 18.5 % 25.0-55.0 MONOCYTE % (test code=MO%) 8.2 % 0.0-10.0 EOSINOPHIL % (test code=EO%) 0.5 % 0.0-5.0 BASOPHIL % (test code=BA%) 0.2 % 0.0-1.0 NUCLEATED RBC % (test code=NRBC%) 0.0 % 0-0 NEUTROPHIL # (test code=NT#) 8.75 K/mm3 1.8-7.7 IMMATURE GRANULOCYTE # (test code=IG#) 0.07 x10 3/uL 0-0.03 LYMPHOCYTE # (test code=LY#) 2.25 K/mm3 1.0-5.0 MONOCYTE # (test code=MO#) 1.00 K/mm3 0-0.8 EOSINOPHIL # (test code=EO#) 0.06 K/mm3 0.0-0.5 BASOPHIL # (test code=BA#) 0.03 K/mm3 0.0-0.2 NUCLEATED RBC # (test code=NRBC#) 0.00 K/mm3 0.0-0.1 CBC W/AUTO [id number] 04:02:00* Test Item Value Reference Range Comments WHITE BLOOD CELL (test code=WBC) K/mm3 4.5-12.5 RED BLOOD CELL (test code=RBC) mill/mm3 4.0-5.8 HEMOGLOBIN (test code=HGB) 14.3 gram/dL 13.0-17.5 HEMATOCRIT (test code=HCT) 43.3 % 42.0-52.0 MEAN CELL VOLUME (test code=MCV) fL 80-98 MEAN CELL HGB (test code=MCH) picogram 27.0-33.0 MEAN CELL HGB CONCETRATION (test code=MCHC) gram/dL 33.0-36.0 RED CELL DISTRIBUTION WIDTH (test code=RDW) % 11.6-16.2 RED CELL DISTRIBUTION WIDTH SD (test code=RDW-SD) fL 37.0-51.0 PLATELET COUNT (test code=PLT) K/mm3 150-450 MEAN PLATELET VOLUME (test code=MPV) fL 6.7-11.0 NEUTROPHIL % (test code=NT%) % 39.0-69.0 IMMATURE GRANULOCYTE % (test code=IG%) % 0.0-5.0 LYMPHOCYTE % (test code=LY%) % 25.0-55.0 MONOCYTE % (test code=MO%) % 0.0-10.0 EOSINOPHIL % (test code=EO%) % 0.0-5.0 BASOPHIL % (test code=BA%) % 0.0-1.0 NEUTROPHIL # (test code=NT#) K/mm3 1.8-7.7 LYMPHOCYTE # (test code=LY#) K/mm3 1.0-5.0 MONOCYTE # (test code=MO#) K/mm3 0-0.8 EOSINOPHIL # (test code=EO#) K/mm3 0.0-0.5 BASOPHIL # (test code=BA#) K/mm3 0.0-0.2 [id number] 21:28:00* Test Item Value Reference Range Comments GLUBED (test code=GLUBED) 201 mg/dL 74-106 Performed by certified cloth mercerizer operator at [facility] THROMBOPLASTIN TIME [id number] 21:27:00* Test Item Value Reference Range Comments THROMBOPLASTIN TIME PARTIAL (test code=PTT) 31.0 seconds 25.0-36.5 IS PATIENT ON ANTICOAGULANTS? YLIST ANTICOAGULANTS HEPARINT4 [id number] 19:16:00* Test Item Value Reference Range Comments T4 FREE (test code=T4F) 1.02 ng/dL 0.76-1.46 THYROID STIMULATING [id number] 19:16:00* Test Item Value Reference Range Comments THYROID STIMULATING HORMONE (test code=TSH) 1.700 uIU/mL 0.36-3.74 TSH REFERENCE RANGES: EUTHYROID: 0.35 - 4.3 mIU/mL HYPO : > 5.5 mIU/mL HYPER : < 0.35 mIU/mL [id number] 18:56:00* Test Item Value Reference Range Comments GLYCOSYLATED HEMOGLOBIN (HA1C) (test code=GLYHGB) 10.9 % HbA1 4.8-6.0 ESTIMATED AVERAGE GLUCOSE (test code=EAG) 266 MG/DL [id number] 17:49:00* Test Item Value Reference Range Comments TROPONIN-I (test code=TROPI) 23.200 ng/mL 0-0.045 Results called to [id number] by V.LAB. 12/26/18 1749Critical results verified and read back by Nurse? Y THROMBOPLASTIN TIME [id number] 14:55:00* Test Item Value Reference Range Comments THROMBOPLASTIN TIME PARTIAL (test code=PTT) 49.4 seconds 25.0-36.5 IS PATIENT ON ANTICOAGULANTS? YLIST ANTICOAGULANTS [id number] 14:17:00* Test Item Value Reference Range Comments GLUBED (test code=GLUBED) 350 mg/dL 74-106 Performed by certified cloth mercerizer operator at [facility] [id number] 09:35:00* Test Item Value Reference Range Comments GLUBED (test code=GLUBED) 326 mg/dL 74-106 Performed by certified cloth mercerizer operator at [facility] THROMBOPLASTIN TIME [id number] 09:08:00* Test Item Value Reference Range Comments THROMBOPLASTIN TIME PARTIAL (test code=PTT) 36.6 seconds 25.0-36.5 IS PATIENT ON ANTICOAGULANTS? [id number] 08:17:00* Test Item Value Reference Range Comments HEMATOCRIT (test code=HCT) 44.0 % 42.0-52.0 PLATELET [id number] 08:17:00* Test Item Value Reference Range Comments PLATELET COUNT (test code=PLT) 315 K/mm3 150-450 - XR CHEST 1 [id number] 07:35:00 FAX: Rosa Thomas MD [phone] [place]: St: ADM FAX: Dave Reeves Name: JATIN HOPSON [facility] : 1975 Age/S: 43/M [address] [facility] Unit #: [id number] Loc: [address] [address] Phys: Dave Reeves Acct: [id number] Dis Date: Status: ADM IN PHONE #: [phone] Exam Date: 12/26/2018 044 FAX #: [phone] Reason: balloon pump in place EXAMS: CPT CODE: [id number] XR CHEST 1 V 00284 EXAM: Chest x-ray, one view; INFORMATION: STEMI; balloon pump in place; IMPRESSION: 1. An inflated balloon pump is seen in the descending aorta and the aortic arch. 2. Mild atelectatic changes in the right upper lobe; otherwise, no significant change compared with yesterday's study; no evidence of pulmonary edema or infiltrates. 3. Small left pleural effusion. 4. The heart size is within normal limits. at 0735 Reported and signed by: Darci Vazquze M.D. CC: Rosa Magaña MD; Dave Reeves Technolo gist: Rosalee Ordonez RT(R) Trnscrd Date/Time/B y: 12/26/2018 (0735) : By: Edyta.GRW Orig Print D/T: S: 12/26/2018 (07 38) PAGE 1 Signed Report BASIC METABOLIC [id number] 05:35:00* Test Item Value Reference Range Comments SODIUM (test code=NA) 136 mmol/L 136-145 POTASSIUM (test code=K) 4.6 mmol/L 3.5-5.1 CHLORIDE (test code=CL) 102.0 mmol/L 98-107 CARBON DIOXIDE (test code=CO2) 24.0 mmol/L 21-32 ANION GAP (test code=GAP) 14.6 10-20 GLUCOSE (test code=GLU) 312 mg/dL 74-106 BLOOD UREA NITROGEN (test code=BUN) 16 mg/dL 7-18 GLOMERULAR FILTRATION RATE (test code=GFR) > 60 mL/min >=60 Estimated GFR by using Modified MDRD formula.Chronic kidney disease is defined as either kidney damageor GFR <60 mL/min/1.73 m2 for >3 months. CREATININE (test code=CREAT) 1.10 mg/dL 0.7-1.3 BUN/CREATININE RATIO (test code=BUN/CREA) 14.5 10-20 CALCIUM (test code=CA) 8.9 mg/dL 8.5-10.1 LIPID PROFILE (CORONARY RISK)2018-12-26 05:35:00* Test Item Value Reference Range Comments TRIGLYCERIDES (test code=TRIG) 150 mg/dL 20-150 CHOLESTEROL (test code=CHOL) 294 mg/dL 0-200 CHOLESTEROL/HDL RATIO (test code=CHOLHDL) 6.0 RATIO 0-4.9 RISK ASSOCIATED WITH CHOL/HDL RATIOS: Risk Male Female1/2 AVERAGE 3.43 3.27AVERAGE 4.97 4.442X AVERAGE 9.55 7.053X AVERAGE 23.39 11.04 REFERENCE VALUE IS RELATED TO RISK LEVELS ASRECOMMENDED BY THE RADHA. HEART, LUNG, AND BLOOD INST. HDL CHOLESTEROL (test code=HDL) 48 mg/dL 40-60 LIPOPROTEIN LDL (test code=LDL) 224 mg/dL 100-129 RN PERSONNEL, CONTACT PHYSICIAN IMMEDIATELY IF THIS IS A STROKE, AMI OR CAROTID STENOSIS PATIENT WHEN THE LDL >100 (1ST OCCURENCE, THIS ADMISSION) Reference Interval: mg/dL mmol/L Optimal <100 <2.6Near/above optimal 100-129 2.6- 3.3Borderline High 130-159 3.4-4.1High 160-189 4.1-4.9Very High >=190 >=4.9=========This LDL result is a direct measurement.========= HEPATIC FUNCTION [id number] 05:35:00* Test Item Value Reference Range Comments TOTAL PROTEIN (test code=PROT) 7.6 gram/dL 6.4-8.2 ALBUMIN (test code=ALB) 3.9 g/dL 3.4-5.0 GLOBULIN (test code=GLOB) 3.7 gram/dL 2.7-4.2 ALBUMIN/GLOBULIN RATIO (test code=A/G) 1.1 0.75-1.50 BILIRUBIN TOTAL (test code=BILT) 1.10 mg/dL 0.0-1.0 BILIRUBIN DIRECT (test code=BILD) 0.16 mg/dL 0.0-0.20 SGOT/AST (test code=AST) 97 IUnit/L 15-37 SGPT/ALT (test code=ALT) 55 IUnit/L 12-78 ALKALINE PHOSPHATASE TOTAL (test code=ALKP) 101 IUnit/L 45-117 Note change in reference range due to change in reagent. [id number] 05:35:00* Test Item Value Reference Range Comments PHOSPHORUS (test code=PHOS) 4.9 mg/dL 2.5-4.9 [id number] 05:35:00* Test Item Value Reference Range Comments MAGNESIUM (test code=MAG) 2.3 mg/dL 1.8-2.4 CALCIUM [id number] 05:35:00* Test Item Value Reference Range Comments CALCIUM IONIZED (test code=MICHAEL) 1.25 mmol/L 1.12-1.32 BASIC METABOLIC [id number] 05:32:00* Test Item Value Reference Range Comments SODIUM (test code=NA) 136 mmol/L 136-145 POTASSIUM (test code=K) 4.6 mmol/L 3.5-5.1 CHLORIDE (test code=CL) 102.0 mmol/L 98-107 CARBON DIOXIDE (test code=CO2) mmol/L 21-32 ANION GAP (test code=GAP) 10-20 GLUCOSE (test code=GLU) mg/dL 74-106 BLOOD UREA NITROGEN (test code=BUN) mg/dL 7-18 GLOMERULAR FILTRATION RATE (test code=GFR) mL/min >=60 CREATININE (test code=CREAT) mg/dL 0.7-1.3 BUN/CREATININE RATIO (test code=BUN/CREA) 10-20 CALCIUM (test code=CA) mg/dL 8.5-10.1 LIPID PROFILE (CORONARY RISK)2018-12-26 05:32:00* Test Item Value Reference Range Comments TRIGLYCERIDES (test code=TRIG) mg/dL 20-150 CHOLESTEROL (test code=CHOL) mg/dL 0-200 CHOLESTEROL/HDL RATIO (test code=CHOLHDL) RATIO 0-4.9 HDL CHOLESTEROL (test code=HDL) mg/dL 40-60 LIPOPROTEIN LDL (test code=LDL) mg/dL 100-129 HEPATIC FUNCTION [id number] 05:32:00* Test Item Value Reference Range Comments TOTAL PROTEIN (test code=PROT) gram/dL 6.4-8.2 ALBUMIN (test code=ALB) g/dL 3.4-5.0 GLOBULIN (test code=GLOB) gram/dL 2.7-4.2 ALBUMIN/GLOBULIN RATIO (test code=A/G) 0.75-1.50 BILIRUBIN TOTAL (test code=BILT) mg/dL 0.0-1.0 BILIRUBIN DIRECT (test code=BILD) mg/dL 0.0-0.20 SGOT/AST (test code=AST) IUnit/L 15-37 SGPT/ALT (test code=ALT) IUnit/L 12-78 ALKALINE PHOSPHATASE TOTAL (test code=ALKP) IUnit/L 45-117 [id number] 05:32:00* Test Item Value Reference Range Comments PHOSPHORUS (test code=PHOS) mg/dL 2.5-4.9 [id number] 05:32:00* Test Item Value Reference Range Comments MAGNESIUM (test code=MAG) mg/dL 1.8-2.4 CALCIUM [id number] 05:32:00* Test Item Value Reference Range Comments CALCIUM IONIZED (test code=MICHAEL) 1.25 mmol/L 1.12-1.32 [id number] 05:32:00* Test Item Value Reference Range Comments GLYCOSYLATED HEMOGLOBIN (HA1C) (test code=GLYHGB) 10.8 % HbA1 4.8-6.0 ESTIMATED AVERAGE GLUCOSE (test code=EAG) 263 MG/DL BASIC METABOLIC [id number] 05:22:00* Test Item Value Reference Range Comments SODIUM (test code=NA) mmol/L 136-145 POTASSIUM (test code=K) mmol/L 3.5-5.1 CHLORIDE (test code=CL) mmol/L 98-107 CARBON DIOXIDE (test code=CO2) mmol/L 21-32 ANION GAP (test code=GAP) 10-20 GLUCOSE (test code=GLU) mg/dL 74-106 BLOOD UREA NITROGEN (test code=BUN) mg/dL 7-18 GLOMERULAR FILTRATION RATE (test code=GFR) mL/min >=60 CREATININE (test code=CREAT) mg/dL 0.7-1.3 BUN/CREATININE RATIO (test code=BUN/CREA) 10-20 CALCIUM (test code=CA) mg/dL 8.5-10.1 LIPID PROFILE (CORONARY RISK)2018-12-26 05:22:00* Test Item Value Reference Range Comments TRIGLYCERIDES (test code=TRIG) mg/dL 20-150 CHOLESTEROL (test code=CHOL) mg/dL 0-200 CHOLESTEROL/HDL RATIO (test code=CHOLHDL) RATIO 0-4.9 HDL CHOLESTEROL (test code=HDL) mg/dL 40-60 LIPOPROTEIN LDL (test code=LDL) mg/dL 100-129 HEPATIC FUNCTION [id number] 05:22:00* Test Item Value Reference Range Comments TOTAL PROTEIN (test code=PROT) gram/dL 6.4-8.2 ALBUMIN (test code=ALB) g/dL 3.4-5.0 GLOBULIN (test code=GLOB) gram/dL 2.7-4.2 ALBUMIN/GLOBULIN RATIO (test code=A/G) 0.75-1.50 BILIRUBIN TOTAL (test code=BILT) mg/dL 0.0-1.0 BILIRUBIN DIRECT (test code=BILD) mg/dL 0.0-0.20 SGOT/AST (test code=AST) IUnit/L 15-37 SGPT/ALT (test code=ALT) IUnit/L 12-78 ALKALINE PHOSPHATASE TOTAL (test code=ALKP) IUnit/L 45-117 [id number] 05:22:00* Test Item Value Reference Range Comments PHOSPHORUS (test code=PHOS) mg/dL 2.5-4.9 [id number] 05:22:00* Test Item Value Reference Range Comments MAGNESIUM (test code=MAG) mg/dL 1.8-2.4 CALCIUM [id number] 05:22:00* Test Item Value Reference Range Comments CALCIUM IONIZED (test code=MICHAEL) 1.25 mmol/L 1.12-1.32 CBC W/AUTO [id number] 05:06:00* Test Item Value Reference Range Comments WHITE BLOOD CELL (test code=WBC) 13.8 K/mm3 4.5-12.5 RED BLOOD CELL (test code=RBC) 5.28 mill/mm3 4.0-5.8 HEMOGLOBIN (test code=HGB) 15.6 gram/dL 13.0-17.5 HEMATOCRIT (test code=HCT) 47.5 % 42.0-52.0 MEAN CELL VOLUME (test code=MCV) 90.0 fL 80-98 MEAN CELL HGB (test code=MCH) 29.5 picogram 27.0-33.0 MEAN CELL HGB CONCETRATION (test code=MCHC) 32.8 gram/dL 33.0-36.0 RED CELL DISTRIBUTION WIDTH (test code=RDW) 12.6 % 11.6-16.2 RED CELL DISTRIBUTION WIDTH SD (test code=RDW-SD) 41.2 fL 37.0-51.0 PLATELET COUNT (test code=PLT) 352 K/mm3 150-450 MEAN PLATELET VOLUME (test code=MPV) 10.5 fL 6.7-11.0 NEUTROPHIL % (test code=NT%) 89.0 % 39.0-69.0 IMMATURE GRANULOCYTE % (test code=IG%) 0.4 % 0.0-5.0 LYMPHOCYTE % (test code=LY%) 6.4 % 25.0-55.0 MONOCYTE % (test code=MO%) 4.0 % 0.0-10.0 EOSINOPHIL % (test code=EO%) 0.0 % 0.0-5.0 BASOPHIL % (test code=BA%) 0.2 % 0.0-1.0 NUCLEATED RBC % (test code=NRBC%) 0.0 % 0-0 NEUTROPHIL # (test code=NT#) 12.31 K/mm3 1.8-7.7 IMMATURE GRANULOCYTE # (test code=IG#) 0.06 x10 3/uL 0-0.03 LYMPHOCYTE # (test code=LY#) 0.88 K/mm3 1.0-5.0 MONOCYTE # (test code=MO#) 0.55 K/mm3 0-0.8 EOSINOPHIL # (test code=EO#) 0.00 K/mm3 0.0-0.5 BASOPHIL # (test code=BA#) 0.03 K/mm3 0.0-0.2 NUCLEATED RBC # (test code=NRBC#) 0.00 K/mm3 0.0-0.1 CBC W/AUTO [id number] 05:03:00* Test Item Value Reference Range Comments WHITE BLOOD CELL (test code=WBC) K/mm3 4.5-12.5 RED BLOOD CELL (test code=RBC) mill/mm3 4.0-5.8 HEMOGLOBIN (test code=HGB) 15.6 gram/dL 13.0-17.5 HEMATOCRIT (test code=HCT) 47.5 % 42.0-52.0 MEAN CELL VOLUME (test code=MCV) fL 80-98 MEAN CELL HGB (test code=MCH) picogram 27.0-33.0 MEAN CELL HGB CONCETRATION (test code=MCHC) gram/dL 33.0-36.0 RED CELL DISTRIBUTION WIDTH (test code=RDW) % 11.6-16.2 RED CELL DISTRIBUTION WIDTH SD (test code=RDW-SD) fL 37.0-51.0 PLATELET COUNT (test code=PLT) K/mm3 150-450 MEAN PLATELET VOLUME (test code=MPV) fL 6.7-11.0 NEUTROPHIL % (test code=NT%) % 39.0-69.0 IMMATURE GRANULOCYTE % (test code=IG%) % 0.0-5.0 LYMPHOCYTE % (test code=LY%) % 25.0-55.0 MONOCYTE % (test code=MO%) % 0.0-10.0 EOSINOPHIL % (test code=EO%) % 0.0-5.0 BASOPHIL % (test code=BA%) % 0.0-1.0 NEUTROPHIL # (test code=NT#) K/mm3 1.8-7.7 LYMPHOCYTE # (test code=LY#) K/mm3 1.0-5.0 MONOCYTE # (test code=MO#) K/mm3 0-0.8 EOSINOPHIL # (test code=EO#) K/mm3 0.0-0.5 BASOPHIL # (test code=BA#) K/mm3 0.0-0.2 URINALYSIS [id number] 04:44:00* Test Item Value Reference Range Comments UA COLOR (test code=COLU) COLORLESS YELLOW UA APPEARANCE (test code=APPU) CLEAR CLEAR UA GLUCOSE DIPSTICK (test code=DGLUU) >1000 (4+) mg/dL NEGATIVE UA BILIRUBIN DIPSTICK (test code=BILU) NEGATIVE mg/dL NEGATIVE UA KETONE DIPSTICK (test code=KETU) 100 (3+) mg/dL NEGATIVE UA SPECIFIC GRAVITY (test code=SGU) 1.050 1.001-1.035 UA BLOOD DIPSTICK (test code=SVETA) Negative mg/dL NEGATIVE UA PH DIPSTICK (test code=NELSON) 5.5 5.0-8.0 UA PROTEIN DIPSTICK (test code=PROU) NEGATIVE mg/dL NEGATIVE UA UROBILINIOGEN DIPSTICK (test code=URO) Normal mg/dL NEGATIVE UA NITRITE DIPSTICK (test code=RAYMOND) NEGATIVE NEGATIVE UA LEUKOCYTE ESTERASE W REFLEX (test code=LEUUR) NEGATIVE Giancarlo/uL NEGATIVE UA WBC (test code=WBCU) 0-5 per HPF 0-5 UA RBC (test code=RBCU) 11-20 #/HPF 0-5 UA EPITHELIAL CELLS (test code=EPIU) FEW per HPF FEW UA BACTERIA (test code=BACU) FEW #/HPF NONE Urine Source? Clean CatchDRUGS OF ABUSE SCREEN [id number] 04:44:00* Test Item Value Reference Range Comments URN COCAINE (test code=COCAURN) NEGATIVE <300 ng/mL URN CANNABINOIDS (test code=CANNABURN) NEGATIVE <50 ng/mL URN AMPHETAMINE (test code=AMPHETURN) NEGATIVE <1000 ng/mL URN BARBITURATE (test code=BARBITURN) NEGATIVE <200 ng/mL URN BENZODIAZEPINE (test code=BENZOURN) NEGATIVE <200 ng/mL URN OPIATES (test code=OPIATURN) POSITIVE <300 ng/mL This test provides only a preliminary test result. A morespecific alternate chemical method must be used in order toobtain a confirmed analytical result. Gas chromatography/mass spectrometry (GC/MS) is thepreferred confirmatory method. Other chemical confirmationmethods are available. Clinical consideration and professional judgment should be applied to any drug of abusetest result, particularly when preliminary positive resultsare used.Unconfirmed screening results must not be used fornon-medical purposes (e.g., employment testing, legaltesting). URN PHENCYCLIDINE (PCP) (test code=PHENCURN) NEGATIVE <25 ng/mL URN METHADONE (test code=METHAURN) NEGATIVE <300 ng/mL Urine Source? Clean CatchURINALYSIS [id number] 03:54:00* Test Item Value Reference Range Comments UA COLOR (test code=COLU) COLORLESS YELLOW UA APPEARANCE (test code=APPU) CLEAR CLEAR UA GLUCOSE DIPSTICK (test code=DGLUU) >1000 (4+) mg/dL NEGATIVE UA BILIRUBIN DIPSTICK (test code=BILU) NEGATIVE mg/dL NEGATIVE UA KETONE DIPSTICK (test code=KETU) 100 (3+) mg/dL NEGATIVE UA SPECIFIC GRAVITY (test code=SGU) 1.050 1.001-1.035 UA BLOOD DIPSTICK (test code=SVETA) Negative mg/dL NEGATIVE UA PH DIPSTICK (test code=NELSON) 5.5 5.0-8.0 UA PROTEIN DIPSTICK (test code=PROU) NEGATIVE mg/dL NEGATIVE UA UROBILINIOGEN DIPSTICK (test code=URO) Normal mg/dL NEGATIVE UA NITRITE DIPSTICK (test code=RAYMOND) NEGATIVE NEGATIVE UA LEUKOCYTE ESTERASE W REFLEX (test code=LEUUR) NEGATIVE Giancarlo/uL NEGATIVE UA WBC (test code=WBCU) 0-5 per HPF 0-5 UA RBC (test code=RBCU) 11-20 #/HPF 0-5 UA EPITHELIAL CELLS (test code=EPIU) FEW per HPF FEW UA BACTERIA (test code=BACU) FEW #/HPF NONE Urine Source? Clean CatchDRUGS OF ABUSE SCREEN [id number] 03:54:00* Test Item Value Reference Range Comments URN COCAINE (test code=COCAURN) <300 ng/mL URN CANNABINOIDS (test code=CANNABURN) <50 ng/mL URN AMPHETAMINE (test code=AMPHETURN) <1000 ng/mL URN BARBITURATE (test code=BARBITURN) <200 ng/mL URN BENZODIAZEPINE (test code=BENZOURN) <200 ng/mL URN OPIATES (test code=OPIATURN) <300 ng/mL URN PHENCYCLIDINE (PCP) (test code=PHENCURN) <25 ng/mL URN METHADONE (test code=METHAURN) <300 ng/mL Urine Source? Clean [id number] 02:03:00* Test Item Value Reference Range Comments GLUBED (test code=GLUBED) 325 mg/dL 74-106 Performed by certified cloth mercerizer operator at [facility] B-TYPE NATRIURETIC [id number] 21:39:00* Test Item Value Reference Range Comments B-TYPE NATRIURETIC PEPTIDE (test code=BNP) 11.04 pgram/mL 0-100 PROTHROMBIN [id number] 20:58:00* Test Item Value Reference Range Comments PROTHROMBIN TIME PATIENT (test code=PTP) 11.8 seconds 9.0-14.0 INTERNATIONAL NORMAL RATIO (test code=INR) 1.0 0.8-1.2 The therapeutic range for oral anticoagulant therapy formost indications is an international normalized ratio (INR)of between 2.0 and 3.0. The recommended therapeutic INRrange for various clinical situations is listed below: Clinical Situation INR range Pulmonary e mbolism treatment (2.0-3.0)Venous thrombosis treatmentVenous thrombosis prophylaxis (high risk surgery)Prevention of systemic embolism from: Acute myocardial infarction Valvular heart disease Atrial fibrillation Mechanical prosthetic heart valves (2.5-3.5) IS PATIENT ON ANTICOAGULANTS? NTHROMBOPLASTIN TIME [id number] 20:58:00* Test Item Value Reference Range Comments THROMBOPLASTIN TIME PARTIAL (test code=PTT) 100.9 seconds 25.0-36.5 Results called to [id number] by JOHN 12/25/18 2054Critical results verified and read back by Nurse? Y IS PATIENT ON ANTICOAGULANTS? NBASIC METABOLIC [id number] 20:45:00* Test Item Value Reference Range Comments SODIUM (test code=NA) 134 mmol/L 136-145 POTASSIUM (test code=K) 4.1 mmol/L 3.5-5.1 CHLORIDE (test code=CL) 101.0 mmol/L 98-107 CARBON DIOXIDE (test code=CO2) 20.0 mmol/L 21-32 ANION GAP (test code=GAP) 17.1 10-20 GLUCOSE (test code=GLU) 367 mg/dL 74-106 BLOOD UREA NITROGEN (test code=BUN) 18 mg/dL 7-18 GLOMERULAR FILTRATION RATE (test code=GFR) 55 mL/min >=60 Estimated GFR by using Modified MDRD formula.Chronic kidney disease is defined as either kidney damageor GFR <60 mL/min/1.73 m2 for >3 months. CREATININE (test code=CREAT) 1.40 mg/dL 0.7-1.3 BUN/CREATININE RATIO (test code=BUN/CREA) 12.9 10-20 CALCIUM (test code=CA) 9.2 mg/dL 8.5-10.1 HEPATIC FUNCTION [id number] 20:45:00* Test Item Value Reference Range Comments TOTAL PROTEIN (test code=PROT) 7.5 gram/dL 6.4-8.2 ALBUMIN (test code=ALB) 3.9 g/dL 3.4-5.0 GLOBULIN (test code=GLOB) 3.6 gram/dL 2.7-4.2 ALBUMIN/GLOBULIN RATIO (test code=A/G) 1.1 0.75-1.50 BILIRUBIN TOTAL (test code=BILT) 0.80 mg/dL 0.0-1.0 BILIRUBIN DIRECT (test code=BILD) 0.14 mg/dL 0.0-0.20 SGOT/AST (test code=AST) 27 IUnit/L 15-37 SGPT/ALT (test code=ALT) 48 IUnit/L 12-78 ALKALINE PHOSPHATASE TOTAL (test code=ALKP) 116 IUnit/L 45-117 Note change in reference range due to change in reagent. [id number] 20:45:00* Test Item Value Reference Range Comments LIPASE (test code=LIP) 85 U/L 73.0-393.0 [id number] 20:45:00* Test Item Value Reference Range Comments MAGNESIUM (test code=MAG) 2.2 mg/dL 1.8-2.4 [id number] 20:45:00* Test Item Value Reference Range Comments TROPONIN-I (test code=TROPI) <0.015 ng/mL 0-0.045 BASIC METABOLIC [id number] 20:35:00* Test Item Value Reference Range Comments SODIUM (test code=NA) 134 mmol/L 136-145 POTASSIUM (test code=K) 4.1 mmol/L 3.5-5.1 CHLORIDE (test code=CL) 101.0 mmol/L 98-107 CARBON DIOXIDE (test code=CO2) mmol/L 21-32 ANION GAP (test code=GAP) 10-20 GLUCOSE (test code=GLU) mg/dL 74-106 BLOOD UREA NITROGEN (test code=BUN) mg/dL 7-18 GLOMERULAR FILTRATION RATE (test code=GFR) mL/min >=60 CREATININE (test code=CREAT) mg/dL 0.7-1.3 BUN/CREATININE RATIO (test code=BUN/CREA) 10-20 CALCIUM (test code=CA) mg/dL 8.5-10.1 HEPATIC FUNCTION [id number] 20:35:00* Test Item Value Reference Range Comments TOTAL PROTEIN (test code=PROT) gram/dL 6.4-8.2 ALBUMIN (test code=ALB) g/dL 3.4-5.0 GLOBULIN (test code=GLOB) gram/dL 2.7-4.2 ALBUMIN/GLOBULIN RATIO (test code=A/G) 0.75-1.50 BILIRUBIN TOTAL (test code=BILT) mg/dL 0.0-1.0 BILIRUBIN DIRECT (test code=BILD) mg/dL 0.0-0.20 SGOT/AST (test code=AST) IUnit/L 15-37 SGPT/ALT (test code=ALT) IUnit/L 12-78 ALKALINE PHOSPHATASE TOTAL (test code=ALKP) IUnit/L 45-117 [id number] 20:35:00* Test Item Value Reference Range Comments LIPASE (test code=LIP) U/L 73.0-393.0 [id number] 20:35:00* Test Item Value Reference Range Comments MAGNESIUM (test code=MAG) mg/dL 1.8-2.4 [id number] 20:35:00* Test Item Value Reference Range Comments TROPONIN-I (test code=TROPI) ng/mL 0-0.045 CBC W/O [id number] 20:32:00* Test Item Value Reference Range Comments WHITE BLOOD CELL (test code=WBC) 9.8 K/mm3 4.5-12.5 RED BLOOD CELL (test code=RBC) 5.26 mill/mm3 4.0-5.8 HEMOGLOBIN (test code=HGB) 15.6 gram/dL 13.0-17.5 HEMATOCRIT (test code=HCT) 48.4 % 42.0-52.0 MEAN CELL VOLUME (test code=MCV) 92.0 fL 80-98 MEAN CELL HGB (test code=MCH) 29.7 picogram 27.0-33.0 MEAN CELL HGB CONCETRATION (test code=MCHC) 32.2 gram/dL 33.0-36.0 RED CELL DISTRIBUTION WIDTH (test code=RDW) 12.5 % 11.6-16.2 PLATELET COUNT (test code=PLT) 320 K/mm3 150-450 MEAN PLATELET VOLUME (test code=MPV) 10.6 fL 6.7-11.0 CBC W/O [id number] 20:26:00* Test Item Value Reference Range Comments WHITE BLOOD CELL (test code=WBC) K/mm3 4.5-12.5 RED BLOOD CELL (test code=RBC) mill/mm3 4.0-5.8 HEMOGLOBIN (test code=HGB) 15.6 gram/dL 13.0-17.5 HEMATOCRIT (test code=HCT) 48.4 % 42.0-52.0 MEAN CELL VOLUME (test code=MCV) fL 80-98 MEAN CELL HGB (test code=MCH) picogram 27.0-33.0 MEAN CELL HGB CONCETRATION (test code=MCHC) gram/dL 33.0-36.0 RED CELL DISTRIBUTION WIDTH (test code=RDW) % 11.6-16.2 PLATELET COUNT (test code=PLT) K/mm3 150-450 MEAN PLATELET VOLUME (test code=MPV) fL 6.7-11.0 TROPONIN I [id number] 20:23:00* Test Item Value Reference Range Comments TROPONIN I RAPID (test code=TROPIRAP) 0.01 ng/mL <0.08 Please Note New Reference Range 0.00-0.079 ng/mL - Negative>or=0.08 ng/mL - Positive The use of serial sampling and testing protocol is arecommended practice.An elevated troponin level alone is often not sufficient fordiagnosis of myocardial infarction. Troponin results obtained by different assays may vary.Evaluation of the extent of myocardial damage based onincrease of troponin would be valid only if similarmethodology is used. - XR CHEST 1 [id number] 20:22:00 FAX: Cata Kerns [phone] [place]: B St: ADM Name: JATIN GARVEY [facility] : [birth year] 72 Age/S: 43/M [place] Unit #: [id number] Loc: [place] [address] Phys: Cata Selby MD Acct: [id number] Dis Date: Status: ADM IN PHONE #: [phone] Exam Date: 12/25/20182010 FAX #: [phone] Reason: CHEST PAIN EXAMS: CPT CODE: [id number] XR CHEST 1 V [id number] REASON FOR EXAM: CHEST PAIN EXAM ORDER DATE: 12/25/2018 8:02 PM Ordering Justin: Cata Selby MD PROCEDURE: - XR CHEST 1 V CO MPARISON: FINDINGS: Portable AP frontal view of the chest obtaine d at 8:10 PM shows clear lungs without evidence of consolidation. There is no evidence of effusion. The heart size is within normal limits. Pu lmonary vasculatures are unremarkable. IMPRESSION: No active di sease. at 2021 * * Reported and signed by: Alexsander Morales M.D. CC: Cata Selby MD Technologist: Ara Merritt RT(R) Trnscrd Date/Time/By: 2018 (2021) : By: KaileyVTL Orig Print D/T: S: 12/25/2018 (2025) PAGE 1 Signed Report CHEMISTRY 8 [id number] 20:12:00* Test Item Value Reference Range Comments ISTAT-SODIUM (test code=NAP) mmol/L 135-148 ISTAT-POTASSIUM (test code=KP) mmol/L 3.5-5.5 ISTAT-CHLORIDE (test code=CLP) mmol/L 101-109 ISTAT CARBON DIOXIDE (test code=ISTAT-CO2) mmol/L 21-32 ISTAT CALCIUM IONIZED (test code=ISTAT-MICHAEL) mg/dL 1.12-1.32 ISTAT-ANION GAP (test code=GAPP) MEQ/L 10-20 ISTAT-GLUCOSE (test code=GLUP) mg/dL 74-106 ISTAT-BUN (test code=BUNP) mg/dL 3-21 BEDSIDE CREATININE (test code=CREATBED) mg/dL 0.7-1.3 GLOMERULAR FILTRATION RATE POC (test code=GFRBED) 91 >60 CHEMISTRY 8 [id number] 20:12:00* Test Item Value Reference Range Comments ISTAT-SODIUM (test code=NAP) 133 mmol/L 135-148 ISTAT-POTASSIUM (test code=KP) 4.0 mmol/L 3.5-5.5 ISTAT-CHLORIDE (test code=CLP) 103 mmol/L 101-109 ISTAT CARBON DIOXIDE (test code=ISTAT-CO2) 17.0 mmol/L 21-32 ISTAT CALCIUM IONIZED (test code=ISTAT-MICHAEL) 0.90 mg/dL 1.12-1.32 ISTAT-ANION GAP (test code=GAPP) 18.0 MEQ/L 10-20 ISTAT-GLUCOSE (test code=GLUP) 369 mg/dL 74-106 ISTAT-BUN (test code=BUNP) 20 mg/dL 3-21 BEDSIDE CREATININE (test code=CREATBED) 0.9 mg/dL 0.7-1.3 GLOMERULAR FILTRATION RATE POC (test code=GFRBED) 91 >60
--- OUTSIDE RECORDS SUMMARY | 2019-05-10 10:12 | XMS REPORT ---
Author Author Admin, [place] Organization Unknown Address Unknown Phone Unavailable PROBLEMS Condition Status Date Provider Notes Fracture of unspecified metatarsal bone(s), unspecified foot, initial encounter for closed fracture active Radha Averyt Preoperative examination active Radha Averyt ADJUSTMENT DISORDER, W/ DEPRESSED MOOD active Estephania Sher ADJUSTMENT DISORDER, W/ DEPRESSED MOOD active Miles Barone NSAID use active Radha Averyt DM 2 without diabetic retinopathy active Cash Noe Screening for diabetic retinopathy active Cash Noe Presbyopia - OU active Cash Noe Astigmatism, bilateral active Cash Noe Myopia, bilateral active Cash Noe Iatrogenic hypotension active Radha Averyt Snoring active Radha Averyt Angina pectoris, chronic active Radah Averyt S/P percutaneous transluminal coronary angioplasty active Radha Averyt Myocardial infarction complications active Radha Averyt Fatigue active Radha Averyt Systolic heart failure active Radha Averyt Coronary artery aneurysm active Radha Averyt Blurred vision active Radha Averyt Xiphoidalgia active Radha Averyt Sleep disorder active Alena Schenider GENERALIZED ANXIETY DISORDER active Miles Barone Foot joint pain, right active Alena Schneider Transient cerebral ischemia (ischemic demyelination changes) active Alena Schneider Labile essential hypertension active Radha Averyt Headache active Alena Schneider Chest pain, unspecified completed - Radha Averyt Anxiety disorder completed - Radha Averyt Elevated blood pressure reading without diagnosis of hypertension completed - Radha Averyt Diabetes mellitus type II, controlled active Luli Tomlinson Elevated transaminases active Luli Tomlinson Well adult active Luli Tomlinson Venereal disease screening completed - Luli Tomlinson Screening for viral disease NOS completed - Luli Tomlinson Headache completed - Luli Tomlinson Hyperlipidemia active Luli Tomlinson Pre-diabetes completed - Luli Tomlinson Chronic low back pain completed - Luli Tomlinson Unspecified injury of left wrist, hand and finger(s), initial encounter completed - Luli Tomlinson BMI 27.0-27.9 active Luli Tomlinson Overweight active Luli Tomlinson ENCOUNTERS Date Type Provider Location Encounter Diagnosis - Ambulatory Encounter Radha Averyt Radha Averyt [facility] UNK - Ambulatory Encounter [facility] Poornima Deluna [facility] Services UNK - Ambulatory Encounter Radha Averyt Radha Averyt [facility] UNK - Ambulatory Encounter Radha Averyt Radha Averyt [facility] UNK - Ambulatory Encounter Radha Averyt Radha Averyt [facility] UNK - Ambulatory Encounter Radha Averyt Radha Averyt [facility] UNK - Ambulatory Encounter Radha Averyt Radha Averyt [facility] UNK - Ambulatory Encounter Radha Averyt Radha Averyt [facility] UNK - Ambulatory Encounter Radha Averyt Radha Averyt Caterina [facility] Preoperative examinationFracture of unspecified metatarsal bone(s), unspecified foot, initial encounter for closed fracture - Ambulatory Encounter Estephania Sher [facility] UNK - Ambulatory Encounter [facility] - [facility] - [facility] - [facility]counter Radha Averyt Radha Averyt [facility] UNK - Ambulatory Encounter [facility]ha [facility] - [facility]ha [facility] - [facility] - [facility] Encounter Estephania Sher [facility] UNK - Ambulatory Encounter Miles Ervin [facility] ADJUSTMENT DISORDER, W/ DEPRESSED MOOD - Ambulatory Encounter Radha Averyt Radha Averyt [facility] UNK - Ambulatory Encounter Estephania Sher [facility] ADJUSTMENT DISORDER, W/ DEPRESSED MOOD - Ambulatory Encounter [facility] - [facility] - Ambulatory Encounter Fax Status [facility] UNK - Ambulatory Encounter Radha Averyt Radha Averyt [facility] UNK - Ambulatory Encounter Radha Averyt [facility] - [facility]ulatory Encounter Fax Status [facility] UNK - Ambulatory Encounter F[facility] - [facility]counter [facility]ha [facility]t [facility] - Ambulatory Encounter Radha Averyt Radha Averyt [facility] UNK - Ambulatory Encounter Radha Averyt Radha [facility] - [facility]ha Averyt [facility] - [facility]ulatory Encounter Radha Averyt [facility] - Ambulatory Encounter Cash Noe Cash Noe [facility] UNK - Ambulatory Encounter Sheree Smith [facility] UNK - Ambulatory Encounter [facility] - Ambulatory Encounter Luca Mccarthy [facility] - Ambulatory Encounter Radha Averyt Radha Averyt [facility] UNK - Ambulatory Encounter Radha Averyt Radha Averyt Caterina Deluna [facility] Radha Averyt Radha Averyt [facility] [place] UNK - Ambulatory Encounter Radha Averyt Radha Averyt [facility] UNK - Ambulatory Encounter Radha Averyt Radha Averyt [facility] UNK - Ambulatory Encounter Radha Averyt Radha Averyt [facility] UNK - Ambulatory Encounter Radha Averyt Radha Averyt [facility] UNK - Ambulatory Encounter Radha Averyt Radha Averyt [facility] UNK - Ambulatory Encounter Radha Averyt Radha Averyt Caterina Ugalde Josy Redmonda [facility] UNK - Ambulatory Encounter Radha Averyt Radha Averyt Yocasta Jacinto Eulalia Mcc[facility] UNK - Ambulatory Encounter Yocasta Jacinto Radha Averyt Radha Averyt [facility] UNK - Ambulatory Encounter Radha Averyt Radha Averyt [facility] UNK - Ambulatory Encounter Radha Averyt Radha Averyt [facility] Yocasta Jacinto [facility] UNK - Ambulatory Encounter Radha Averyt Radha Averyt [facility] UNK - Ambulatory Encounter Radha Averyt Radha Averyt Caterina Ugalde [facility] NSAID use - Ambulatory Encounter [place] Nena Valladares [facility] UNK - Ambulatory Encounter Cash Noe Cash Noe [facility] UNK - Ambulatory Encounter Cash Noe Cash Noe [facility] UNK - Ambulatory Encounter Cash Noe Cash Noe [facility] UNK - Ambulatory Encounter Cash Noe Cash Noe La Nena Valladares [facility] Myopia, bilateralAstigmatism, bilateralPresbyopia - OUScreening for diabetic retinopathyDM 2 without diabetic retinopathy - Ambulatory Encounter Radha Averyt Radha Averyt [facility] UNK - Ambulatory Encounter Radha Averyt Radha Averyt [facility] UNK - Ambulatory Encounter Radha Averyt Radha Averyt Ashley Blanc Fodr [facility] Anxiety disorderChest pain, unspecifiedLabile essential hypertensionAngina pectoris, chronicSnoringIatrogenic hypotension - Ambulatory Encounter Radha Averyt Radha Averyt [facility] UNK - Ambulatory Encounter Radha Averyt Radha Averyt [facility] UNK - Ambulatory Encounter Radha Averyt Radha Averyt [facility] UNK - Ambulatory Encounter Radha Averyt Radha Averyt [facility] UNK - Ambulatory Encounter Radha Averyt Radha Averyt [facility] UNK - Ambulatory Encounter Radha Averyt Radha Averyt [facility] UNK - Ambulatory Encounter Radha Averyt Radha Averyt [facility] UNK - Ambulatory Encounter Radha Averyt Radha Averyt [facility] UNK - Ambulatory Encounter Radha Averyt Radha Averyt [facility] UNK - Ambulatory Encounter [facility] - [facility] - [facility] Encounter Radha Averyt Radha Averyt Ashley Cox [facility] Elevated blood pressure reading without diagnosis of hypertensionBlurred visionCoronary artery aneurysmSystolic heart failureFatigueMyocardial infarction complicationsS/P percutaneous transluminal coronary angioplasty - Ambulatory Encounter L[facility] Care Coordination Desktop Barbara Geronimo [facility] Contact Center UNK - Ambulatory Encounter Joan Arguelles [facility] UNK - Ambulatory Encounter Joan Arguelles [facility] Services UNK - Ambulatory Encounter Radha A[facility]t [facility] - [facility] Encounter Radha [facility] - [facility]ulatory Encounter Radha Averyt Radha Averyt [facility] Services UNK - Ambulatory Encounter Yocasta Jacinto Radha Averyt [facility] - [facility] Encounter Radha A[facility]t [facility] - [facility]ulatory Encounter Radha Averyt Radha Averyt [facility] Yocasta [facility]into [facility] - [facility]ulatory Encounter Radha A[facility]t [facility] - [facility]ulatory Encounter Radha Averyt Radha Averyt Ashley Ford [facility] Xiphoidalgia - Ambulatory En[facility] - [facility] Encounter Alena Schneider Alena Schneider [facility] UNK - Ambulatory Encounter Ronda Hilary [facility] UNK - Ambulatory Encounter Alena Schneider Alena Schneider [facility] - Ambulatory Encounter Ronda Hilary [facility] UNK - Ambulatory Encounter Ronda Hilary [facility] UNK - Ambulatory Encounter Ronda Hilary Ashley Kenny [facility] UNK - Ambulatory Encounter Alena Schneider [facility] - [facility]ulatory Encounter Alena Schneider Alena Schneiderdo Yokasta Rosenberg [facility] - Ambulatory Encounter Alena Schneider Alena Schneider [facility] UNK - Ambulatory Encounter Alena Schneider Alena Schneider [facility] UNK - Ambulatory Encounter Alena Schneider Alena Schneider [facility] UNK - Ambulatory Encounter [facility] - Ambulatory Encounter Alena Schneider Alena Schneider [facility] UNK - Ambulatory Encounter Alena Schneider Alena Schneider [facility] UNK - Ambulatory Encounter Alena Schneider [facility] - [facility] Encounter Alena Schneider Alena Schneider Ashley [facility] Sleep disorder - Ambulatory Encounter Alena Schneider Al[facility] - Ambulatory Encounter Fax Status [facility] - Ambulatory Encounter Fax Status [facility] Ambulatory Encounter Fax Status [facility] UNK - Ambulatory Encounter Alena Schneider Alena Schneider [facility] - Ambulatory Encounter Miles Lizabethkaleigh Aquino [facility] - Ambulatory Encounter Mielssunshine Aquino [facility] - Ambulatory Encounter Miles Lizabeth Milessunshine Moody [facility] GENERALIZED ANXIETY DISORDER - Ambulatory Encounter Alena Schneider [facility] - [facility] Encounter Alena Schneider Alena Schneiderdo Ashley Manzo [facility] Labile essential hypertensionTransient cerebral ischemia (ischemic demyelination changes)Foot joint pain, right - Ambulatory Encounter Kavyaadia Yin [facility] UNK - Ambulatory Encounter Alena Schneider [facility] - [facility]ulatory Encounter Alena Schneider Alena Schneider [facility] - Ambulatory Encounter Alena Schneider [facility] - Ambulatory Encounter Fax Status [facility] UNK - Ambulatory Encounter Yocasta Gomezica Schneider Al[facility] - Ambulatory Encounter Fax Status [facility] UNK - Ambulatory Encounter Fax Status [facility] - Ambulatory Encounter Fax Status [facility] - Ambulatory Encounter Fax Status [facility] UNK - Ambulatory Encounter Fax Status [facility] UNK - Ambulatory Encounter Alena Carvajal Schneider [facility] - Ambulatory Encounter Alena Carvajal Wyatt Apodaca [facility] Anxiety disorderChest pain, unspecifiedHeadache - Ambulatory Encounter Shaista Tena [facility] UNK - Ambulatory Encounter Luli Tomlinson [facility] UNK - Ambulatory Encounter Luli Tomlinson [facility] UNK - Ambulatory Encounter Luli Tomlinson [facility] UNK - [facility] Unspecified injury of left wrist, hand and finger(s), initial encounterChronic low back painPre- diabetesHeadacheDiabetes mellitus type II, controlledElevated blood pressure reading without diagnosis of hypertension - Ambulatory Encounter Luli Tomlinson [facility] - [facility]ulatory Encounter Luli Tomlinson [facility] UNK - Ambulatory Encounter Yocasta Tomlinson [facility] Contact Center Elevated transaminases - Ambulatory Encounter Fax Status [facility] - [facility] [place] [facility] Luli Davi Tomlinson [facility] Screening for viral disease NOSVenereal disease screeningWell adult - Ambulatory Encounter Luli Davi [place] [facility] - Ambulatory En[facility] [place] [facility] - [facility] Luli [facility] [place] [facility] - Ambulatory Encounter Luli [facility] [place] [facility] OverweightBMI 27.0-27.9Unspecified injury of left wrist, hand and finger(s), initial encounterChronic low back painPre-diabetesHyperlipidemiaHeadacheScreening for viral disease NOSVenereal disease screening VITAL SIGNS No Information Available Allergies No Known Allergy Information REASON FOR REFERRAL Start Date - End Date Service - Cardiology - External - Neurology - External - Xray - Chest - 2 Views - InHouse RESULTS Date Observation Value Provider Reference Range Interpretation Location hemoglobin A1C, blood, as % of total hemoglobin 6 % Radha Averyt troponin I <0.01 ng/mL [facility] 0.00-0.04 " creatine kinase MB isoenzyme (band), serum 7.6 ng/mL [facility] 0.0-10.4 " creatine kinase, serum 306 1/L [facility] 24-204 High c-reactive protein, quantitative, serum <1 mg/L [facility] 0-10 " erythrocyte sedimentation rate 2 mm/h [facility] 0-15 " thyroid stimulating hormone, serum 1.320 u[iU]/mL [facility] 0.450-4.500 " vitamin D 25-hydroxy, serum 16.5 ng/mL [facility] 30.0-100.0 Low " hemoglobin A1C, blood, as % of total hemoglobin 8.2 % [facility] 4.8-5.6 High " folate, serum 6.6 ng/mL [facility] >3.0 " B-12, serum >2000 pg/mL [facility] 232-1245 High " microalbumin/creatinine ratio, urine 5.4 MG/G CREAT [facility] 0.0-30.0 " microalbumin/total urine volume 13.6 mg/L [facility] Not Estab. " creatinine, random, urine 251.4 mg/dL [facility] Not Estab. " LDL cholesterol, serum 86 mg/dL [facility] 0-99 " very low density lipoproteins 26 mg/dL [facility] 5-40 " HDL cholesterol, serum 49 mg/dL [facility] >39 " triglyceride, serum, fasting 129 mg/dL [facility] 0-149 " cholesterol, serum 161 mg/dL [facility] 100-199 " alanine aminotransferase (SGPT), serum 27 1/L [facility] 0-44 " aspartate aminotransferase (SGOT), serum 19 1/L [facility] 0-40 " alkaline phosphatase, serum 82 1/L [facility] 39-117 " bilirubin, serum, total 1.2 mg/dL [facility] 0.0-1.2 " albumin/globulin ratio, serum 2.1 [facility] 1.2-2.2 " globulin, serum 2.4 [facility] 1.5-4.5 " albumin, serum 5.1 g/dL [facility] 3.5-5.5 " protein, total, serum 7.5 g/dL [facility] 6.0-8.5 " calcium, serum 9.7 mg/dL [facility] 8.7-10.2 " carbon dioxide, venous blood 23 mmol/L [facility] 20-29 " chloride, serum 101 mmol/L [facility] 96-106 " potassium, serum 4.6 mmol/L [facility] 3.5-5.2 " sodium, serum 141 mmol/L [facility] 134-144 " urea nitrogen/creatinine ratio, serum 15 [facility] 9-20 " eGFR if 117 mL/min/((173/100).m2) [facility] >59 " Estimated Glomerular Filtration Rate (calc) 101 mL/min/((173/100).m2) [facility] >59 " creatinine, serum 0.91 mg/dL [facility] 0.76-1.27 " urea nitrogen, blood 14 mg/dL [facility] 6-24 " blood glucose, random 139 mg/dL [facility] 65-99 High " immature granulocytes, percentage of total cells, blood 0 % [facility] Not Estab. " basophil count, absolute 0.0 x10E3/uL [facility] 0.0-0.2 " Eosinophil Absolute Count 0.1 X10E3/UL [facility] 0.0-0.4 " monocyte count, blood, automated 0.4 X10E3/UL [facility] 0.1-0.9 " lymphocyte count, blood, automated 1.6 X10E3/UL [facility] 0.7-3.1 " Absolute Neutrophils 4.2 X10E3/UL [facility] 1.4-7.0 " basophils as percent of blood leukocytes 0 % [facility] Not Estab. " eosinophils as percent of blood leukocytes 1 % [facility] Not Estab. " monocytes as percent of blood leukocytes 7 % [facility] Not Estab. " lymphocytes as percent of blood leukocytes 25 % [facility] Not Estab. " neutrophils as percent of blood leukocytes 67 % [facility] Not Estab. " platelet count 295 X10E3/UL [facility] 150-450 " red blood cell distribution width 13.8 % [facility] 12.3-15.4 " mean corpuscular hemoglobin concentration, RBC 32.6 G/DL [facility] 31.5-35.7 " mean corpuscular hemoglobin, RBC 29.7 pg [facility] 26.6-33.0 " mean corpuscular volume, RBC 91 fL [facility] 79-97 " hematocrit, blood 45.1 % [facility] 37.5-51.0 " hemoglobin, blood 14.7 g/dL [facility] 13.0-17.7 " erythrocyte (RBC) count 4.95 X10E6/UL [facility] 4.14-5.80 " leukocyte count, blood 6.3 X10E3/UL [facility] 3.4-10.8 blood glucose, random 216 mg/dL Caterina Ugalde hemoglobin A1C, blood, as % of total hemoglobin 7.1 % [facility] 4.8-5.6 High " LDL cholesterol, serum 185 mg/dL [facility] 0-99 High " very low density lipoproteins 49 mg/dL [facility] 5-40 High " HDL cholesterol, serum 48 mg/dL [facility] >39 " triglyceride, serum, fasting 244 mg/dL [facility] 0-149 High " cholesterol, serum 282 mg/dL [facility] 100-199 High " alanine aminotransferase (SGPT), serum 42 1/L [facility] 0-44 " aspartate aminotransferase (SGOT), serum 27 1/L [facility] 0-40 " alkaline phosphatase, serum 85 1/L [facility] 39-117 " bilirubin, serum, total 0.9 mg/dL [facility] 0.0-1.2 " albumin/globulin ratio, serum 1.9 [facility] 1.2-2.2 " globulin, serum 2.6 [facility] 1.5-4.5 " albumin, serum 5.0 g/dL [facility] 3.5-5.5 " protein, total, serum 7.6 g/dL [facility] 6.0-8.5 " calcium, serum 10.3 mg/dL [facility] 8.7-10.2 High " carbon dioxide, venous blood 21 mmol/L [facility] 20-29 " chloride, serum 99 mmol/L [facility] 96-106 " potassium, serum 4.8 mmol/L [facility] 3.5-5.2 " sodium, serum 142 mmol/L [facility] 134-144 " urea nitrogen/creatinine ratio, serum 14 [facility] 9-20 " eGFR if 121 mL/min/((173/100).m2) [facility] >59 " Estimated Glomerular Filtration Rate (calc) 104 mL/min/((173/100).m2) [facility] >59 " creatinine, serum 0.88 mg/dL [facility] 0.76-1.27 " urea nitrogen, blood 12 mg/dL [facility] 6-24 " blood glucose, random 125 mg/dL [facility] 65-99 High hemoglobin A1C, blood, as % of total hemoglobin 6.4 % Alena Wyatt hemoglobin A1C, blood, as % of total hemoglobin 6.8 % Linnea Manzo " blood glucose, random 157 mg/dL Linnea Manzo hemoglobin A1C, blood, as % of total hemoglobin 6.5 % Linnea Miranda hepatitis B surface antigen Negative [facility] Negative " rapid plasma reagin antibody, serum Non Reactive [facility] Non Reactive " hepatitis C antibody, serum <0.1 [facility] 0.0-0.9 " HIV-CMIA (Chemiluminescent Microparticle Immuno Assay) Non Reactive [facility] Non Reactive " hemoglobin A1C, blood, as % of total hemoglobin 6.5 % [facility] 4.8-5.6 High " Neisseria gonorrhoeae DNA probe Negative [facility] Negative " chlamydia DNA probe Negative [facility] Negative " LDL cholesterol, serum 201 mg/dL [facility] 0-99 High " very low density lipoproteins 31 mg/dL [facility] 5-40 " HDL cholesterol, serum 64 mg/dL [facility] >39 " triglyceride, serum, fasting 153 mg/dL [facility] 0-149 High " cholesterol, serum 296 mg/dL [facility] 100-199 High " alanine aminotransferase (SGPT), serum 49 1/L [facility] 0-44 High " aspartate aminotransferase (SGOT), serum 30 1/L [facility] 0-40 " alkaline phosphatase, serum 83 1/L [facility] 39-117 " bilirubin, serum, total 1.4 mg/dL [facility] 0.0-1.2 High " albumin/globulin ratio, serum 2.2 [facility] 1.1-2.5 " globulin, serum 2.5 [facility] 1.5-4.5 " albumin, serum 5.4 g/dL [facility] 3.5-5.5 " protein, total, serum 7.9 g/dL [facility] 6.0-8.5 " calcium, serum 9.9 mg/dL [facility] 8.7-10.2 " carbon dioxide, venous blood 22 mmol/L [facility] 18-29 " chloride, serum 97 mmol/L [facility] 96-106 " potassium, serum 4.7 mmol/L [facility] 3.5-5.2 " sodium, serum 141 mmol/L [facility] 134-144 " urea nitrogen/creatinine ratio, serum 15 [facility] 9-20 " eGFR if 124 mL/min/((173/100).m2) [facility] >59 " Estimated Glomerular Filtration Rate (calc) 107 mL/min/((173/100).m2) [facility] >59 " creatinine, serum 0.85 mg/dL [facility] 0.76-1.27 " urea nitrogen, blood 13 mg/dL [facility] 6-24 " blood glucose, random 134 mg/dL [facility] 65-99 High " immature granulocytes, percentage of total cells, blood 0 % [facility] " basophil count, absolute 0.0 x10E3/uL [facility] 0.0-0.2 " Eosinophil Absolute Count 0.2 X10E3/UL [facility] 0.0-0.4 " monocyte count, blood, automated 0.4 X10E3/UL [facility] 0.1-0.9 " lymphocyte count, blood, automated 2.1 X10E3/UL [facility] 0.7-3.1 " Absolute Neutrophils 3.9 X10E3/UL [facility] 1.4-7.0 " basophils as percent of blood leukocytes 0 % [facility] " eosinophils as percent of blood leukocytes 3 % [facility] " monocytes as percent of blood leukocytes 6 % [facility] " lymphocytes as percent of blood leukocytes 32 % [facility] " neutrophils as percent of blood leukocytes 59 % [facility] " platelet count 295 X10E3/UL [facility] 150-379 " red blood cell distribution width 13.4 % [facility] 12.3-15.4 " mean corpuscular hemoglobin concentration, RBC 34.7 G/DL [facility] 31.5-35.7 " mean corpuscular hemoglobin, RBC 30.3 pg [facility] 26.6-33.0 " mean corpuscular volume, RBC 88 fL [facility] 79-97 " hematocrit, blood 49.6 % [facility] 37.5-51.0 " hemoglobin, blood 17.2 g/dL [facility] 12.6-17.7 " erythrocyte (RBC) count 5.67 X10E6/UL [facility] 4.14-5.80 " leukocyte count, blood 6.7 X10E3/UL [facility] 3.4-10.8 blood glucose, fasting 132 mg/dL Caterina Ugalde HISTORY OF IMMUNIZATIONS No Information Available HISTORY OF MEDICATION USE Medication Instructions Dates Provider Comments SEROQUEL 25 MG ORAL TABLET Take one tablet By Mouth at bedtime Miles Barone ERGOCALCIFEROL 77155 UNIT ORAL CAPSULE one capsule by mouth every week Radha Averyt GABAPENTIN 300 MG ORAL CAPSULE 1 by mouth at night Radha Averyt METFORMIN HCL 1000 MG ORAL TABLET 1 by mouth twice a day Radha Averyt 1ST TIER UNIFINE PENTIPS 31G X 6 MM inject levemir subcutaneous one time a day Radha Averyt LEVEMIR FLEXTOUCH 100 UNIT/ML SUBCUTANEOUS SOLUTION PEN-INJECTOR 20 units every night Radha Averyt METOPROLOL TARTRATE 25 MG ORAL TABLET 1/2 by mouth twice a day Radha Averyt LISINOPRIL 5 MG ORAL TABLET 1/2 by mouth every day Radha Averyt ISOSORBIDE MONONITRATE ER 60 MG ORAL TABLET EXTENDED RELEASE 24 HOUR one tablet by mouth daily Radha Averyt HUMALOG 100 UNIT/ML SUBCUTANEOUS SOLUTION 10 units three times daily before meals, none if under 140 - Radha Averyt LANTUS SOLOSTAR 100 UNIT/ML SUBCUTANEOUS SOLUTION PEN-INJECTOR 20 units twice a day - Radha Averyt DILTIAZEM HCL ER 60 MG ORAL CAPSULE EXTENDED RELEASE 12 HOUR one tablet by mouth daily Radha Averyt CLOPIDOGREL BISULFATE 75 MG ORAL TABLET 1 By Mouth once a day Radha Averyt ATORVASTATIN CALCIUM 80 MG ORAL TABLET one tablet by mouth daily Radha Averyt ASPIRIN 81 MG ORAL TABLET DELAYED RELEASE 1 by mouth every day Radha Averyt LEXAPRO 10 MG ORAL TABLET 1 By Mouth Every Day - Radha Averyt OMEPRAZOLE 20 MG ORAL CAPSULE DELAYED RELEASE 1 by mouth every day - Radha Jc TRAZODONE HCL 150 MG ORAL TABLET 1-2 tablets by mouth nightly at bedtime - Ronda Hilary CLONAZEPAM 1 MG ORAL TABLET Take 1 tablet twice daily as needed for anxiety - Ronda Hilary ZOLOFT 50 MG ORAL TABLET 1 by mouth nightly at bedtime - Ronda Hilary TRAZODONE HCL 100 MG ORAL TABLET 1 by mouth nightly at bedtime - Alena Schneider ZOLOFT 25 MG ORAL TABLET 1 by mouth daily - Alena Schneider LISINOPRIL-HYDROCHLOROTHIAZIDE 10-12.5 MG ORAL TABLET 1 by mouth daily - Radha Jc HYDROCHLOROTHIAZIDE 12.5 MG ORAL CAPSULE 1 by mouth every day - Alena Schneider IBUPROFEN 600 MG ORAL TABLET 1 By Mouth Every 8 hours As Needed pain - Ronda Hilary CLONAZEPAM 0.5 MG ORAL TABLET Take 1 tablet By Mouth Twice a Day as needed - Alena Schneider LIPITOR 80 MG ORAL TABLET 1 by mouth every night - Radha Jc DUEXIS 800-26.6 MG ORAL TABLET One tablet every 8 hours as needed for headache or for back pain - Alena Schneider LIPITOR 20 MG ORAL TABLET 1 by mouth every pm - Luli Tomlinson METFORMIN HCL 500 MG ORAL TABLET 1 by mouth once a day - Radha Jc SOCIAL HISTORY Date Observation Value Provider Exercise Program Referral Duy Jc " Weight Management Counseling Provided Duy Jc " Nutrition intervention Duy Jc " social history E&M since 1990. . Lives with and 3 kids (9 yo, 16 yo, 18 yo - ages as of 03/2017) Not homeless. Born in [place]. Employed full-time. 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 Gender identity: Male. Gender of partner(s): Female. Age of first sexual intercourse: 15. Sexually Active: Yes. Monogamoius relationshipo with , no h/o STDs. Has vasectomy. States he does not do anything, no time to Gasper Calhoun " social history reviewed E&M reviewed today Gasper Calhoun " is there any chance that you could be ? No Gasper Calhoun " passive cigarette smoke exposure No Gasper Calhoun " smoking status never smoker Gasper Calhoun social history reviewed E&M reviewed today Estephania Sher " social history E&M since 1990. . Lives with and 3 kids (10 yo, 19 yo, 21 yo - ages as of 03/2019) Not homeless. Born in [place]. Employed full-time. 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 Gender identity: Male. Gender of partner(s): Female. Age of first sexual intercourse: 15. Sexually Active: Yes. Monogamoius relationshipo with , no h/o STDs. Has vasectomy. States he does not do anything, no time to Estephania Sher " family support . Lives with and 3 kids (10 yo, 19 yo, 21 yo - ages as of 03/2019) Estephania Sher drug use, illicit Never Miles Barone " alcohol use Currently Miles Barone " smoking status never smoker Miles Barone " social history E&M since 1990. . Lives with and 3 kids (9 yo, 16 yo, 18 yo - ages as of 03/2017) Not homeless. Born in [place]. Employed full-time. 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 Gender identity: Male. Gender of partner(s): Female. Age of first sexual intercourse: 15. Sexually Active: Yes. Monogamoius relationshipo with , no h/o STDs. Has vasectomy. States he does not do anything, no time to Miles Barone " social history reviewed E&M reviewed today Miles Barone " Exercise Program Referral T Miles Barone " Weight Management Counseling Provided T Miles Barone " Nutrition intervention T Miles Barone drug use, illicit Never Estephania Sher " alcohol use Never Estephania Sher " smoking status never smoker Estephania Sher time of call 02/23/2019 5:05 PM Luca Fabio Exercise Program Referral T Radha Jc " Weight Management Counseling Provided T Radha Davidyt " Nutrition intervention T Radha Averyt " passive cigarette smoke exposure No Chad Lj " smoking status never smoker Chad Lj is there any chance that you could be ? No Caterina Ugalde " Exercise Program Referral T Caterina Ugalde " Weight Management Counseling Provided T Caterina Ugalde " Nutrition intervention T Caterina Ugalde " smoking status never smoker Caterina Ugalde time of call 02/09/2019 12:14 PM Eulalia Fabio is there any chance that you could be ? No Caterina Ugalde " smoking status never smoker Caterina Ugalde " passive cigarette smoke exposure No Caterina Ugalde " Exercise Program Referral T Caterina Ugalde " Weight Management Counseling Provided T Caterina Ugalde " Nutrition intervention T Caterina Ugalde Exercise Program Referral T Radha Jc " Weight Management Counseling Provided T Radha Averyt " Nutrition intervention T Radha Averyt " drug use, illicit Never Ashley Cox " alcohol use Currently Ashley Cox " passive cigarette smoke exposure No Ashley Cox " smoking status never smoker Ashley Cox Exercise Program Referral T Radha Averyt " Weight Management Counseling Provided T Radha Averyt " Nutrition intervention T Radha Averyt " drug use, illicit Never Ashley Cox " alcohol use Currently Ashley Cox " passive cigarette smoke exposure No Ashley Cox " smoking status never smoker Ashley Cox time of call 01/10/2019 10:27 AM Brad Geronimo Exercise Program Referral T Radha Averyt " Weight Management Counseling Provided T Radha Averyt " Nutrition intervention T Radha Averyt " drug use, illicit Never Ashley Cox " alcohol use Currently Ashley Cox " passive cigarette smoke exposure No Ashley Cox " smoking status never smoker Ashley Cox social history E&M since 1990. . Lives with and 3 kids (9 yo, 16 yo, 18 yo - ages as of 03/2017) Not homeless. Born in [place]. Employed full-time. 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 Gender identity: Male. Gender of partner(s): Female. Age of first sexual intercourse: 15. Sexually Active: Yes. Monogamoius relationshipo with , no h/o STDs. Has vasectomy. States he does not do anything, no time to Ronda Richard " social history reviewed E&M reviewed today Ronda Richard " Exercise Program Referral T Ronda Richard " Weight Management Counseling Provided T Ronda Richard " Nutrition intervention T Ronda Richard " drug use, illicit Never Ashley Cox " alcohol use Currently Ashley Cox " passive cigarette smoke exposure No Ashley Cox " smoking status never smoker Ashley Cox social history E&M since 1990. . Lives with and 3 kids (9 yo, 16 yo, 18 yo - ages as of 03/2017) Not homeless. Born in [place]. Employed full-time. 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 Gender identity: Male. Gender of partner(s): Female. Age of first sexual intercourse: 15. Sexually Active: Yes. Monogamoius relationshipo with , no h/o STDs. Has vasectomy. States he does not do anything, no time to Yokasta Rosenberg " social history reviewed E&M reviewed today Yokasta Rosenberg " is there any chance that you could be ? No Yokasta Rosenberg " passive cigarette smoke exposure No Yokasta Rosenberg " smoking status never smoker Yokasta Rosenberg " Exercise Program Referral T Yokasta Rosenberg " Weight Management Counseling Provided T Yokasta Rosenberg " Nutrition intervention T Yokasta Rosenberg drug use, illicit Never Miles Barone " alcohol use Currently Miles Barone " smoking status never smoker Miles Barone " social history E&M since 1990. . Lives with and 3 kids (9 yo, 16 yo, 18 yo - ages as of 03/2017) Not homeless. Born in [place]. Employed full-time. 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 Gender identity: Male. Gender of partner(s): Female. Age of first sexual intercourse: 15. Sexually Active: Yes. Monogamoius relationshipo with , no h/o STDs. Has vasectomy. States he does not do anything, no time to Miles Diopkins " social history reviewed E&M reviewed today Miles Diopkins " Exercise Program Referral T Miles Lizabeth " Weight Management Counseling Provided T Miles Lizabeth " Nutrition intervention T Miles Lizabeth Exercise Program Referral T Alena Schneider " Weight Management Counseling Provided T Alena Schneider " Nutrition intervention T Alena Schneider " drug use, illicit Never Ashley Cox " alcohol use Currently Ashley Cox " is there any chance that you could be ? No Ashley Cox " passive cigarette smoke exposure No Ashley Cox " smoking status never smoker Ashley Cox drug use, illicit Never Miles Diopkins " alcohol use Currently Miles Barone " smoking status never smoker Miles Diopkins " social history reviewed E&M reviewed today Miles Barone " social history E&M since 1990. . Lives with and 3 kids (9 yo, 16 yo, 18 yo - ages as of 03/2017) Not homeless. Born in [place]. Employed full-time. 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 Gender identity: Male. Gender of partner(s): Female. Age of first sexual intercourse: 15. Sexually Active: Yes. Monogamoius relationshipo with , no h/o STDs. Has vasectomy. States he does not do anything, no time to Miles Diopkins " family support . Lives with and 3 kids (9 yo, 16 yo, 18 yo - ages as of 03/2017) Miles Barone " Exercise Program Referral T Miles Lizabeth " Weight Management Counseling Provided T Miles Lizabeth " Nutrition intervention T Miles Lizabeth Exercise Program Referral T Alena Schneider " Weight Management Counseling Provided T Alena Schneider " Nutrition intervention T Alena Schneider " is there any chance that you could be ? No Linnea Manzo " passive cigarette smoke exposure No Linnea Manzo " smoking status never smoker Linnea Manzo is there any chance that you could be ? No Caterina Ugalde " passive cigarette smoke exposure No Caterina Ugalde " smoking status never smoker Caterina Ugalde " Exercise Program Referral T Caterina Ugalde " Weight Management Counseling Provided T Caterina Ugalde " Nutrition intervention Duy Ugalde social history E&M . . Lives with and 3 kids (8 yo, 16 yo, 18 yo) Not homeless. Born in [place]. 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 Gender identity: Male. Gender of partner(s): Female. Age of first sexual intercourse: 15. Sexually Active: Yes. Monogamoius relationshipo with , no h/o STDs. Has vasectomy. Luli Tomlinson " social history reviewed E&M reviewed today Luli Tomlinson " Exercise Program Referral Duy Tomlinson " Weight Management Counseling Provided Duy Tomlinson " Nutrition intervention Duy Tomlinson time of call 09/25/2016 4:59 PM Sandra Soriano Exercise Program Referral Duy Tomlinson " Weight Management Counseling Provided Duy Tomlinson " Nutrition intervention Duy Tomlinson " social history - sexual practice Monogamoius relationshipo with , no h/o STDs. Has vasectomy. Luli Tomlinson " social history reviewed E&M reviewed today Luli Tomlinson " social history E&M . . Lives with and 3 kids (8 yo, 16 yo, 18 yo) Not homeless. Born in [place]. 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 Gender identity: Male. Gender of partner(s): Female. Age of first sexual intercourse: 15. Sexually Active: Yes. Monogamoius relationshipo with , no h/o STDs. Has vasectomy. Luli Tomlinson " family support . Lives with and 3 kids (8 yo, 16 yo, 18 yo) Luli Tomlinson " passive cigarette smoke exposure No Caterina Ugalde " drug use, illicit Never Caterina Ugalde " alcohol use Never Caterina Ugalde " sex at Male Caterina Ugalde " patient considered to be homeless No Caterina Ugalde " is there any chance that you could be ? No Caterina Ugalde " smoking status never smoker Caterina Ugalde FUNCTIONAL STATUS No Information Available MENTAL STATUS Date Observation Value Provider Generalized Anxiety Disorder Questionnaire - Question 2 0 Gasper Granadosirez " Generalized Anxiety Disorder Questionnaire - Question 1 0 Chad Lj mental status assessment, judgment good Estephania Sher " insight (mental status exam) good Estephania Sher " Mental Status Exam: intelligence adequate fund of information, intact memory processes, oriented to person, oriented to place, oriented to time, oriented to situation, oriented to reality Estephania Sehr " hallucinations none Estephania Sher " thought content (mental status exam) (E&M) lucid Estephania Sher " mental status assessment, process able to abstract, goal-directed, logical Estephania Sher " mental status assessment, sensorium alert, attentive, clear Estephania Sher " affect (mental status exam) congruent, normal intensity, normal range Estephania Sher " mood (mental status exam) frustrated Estephania Sher " mental status assessment, speech activity normal flow, normal pace, normal pressure, normal rate, normal tone, normal volume, spontaneous Estephania Sher " mental status assessment, motor activity normal gait, normal posture Estephania Sher " behavior (mental status exam) appropriate, candid, cooperative, good eye contact, polite, responsive Estephania Sher " mental appearance (mental status exam) adequate hygiene, appropriate dress, looks like stated age, neat Estephania Sher mental status assessment, judgment good Estephania Sher " insight (mental status exam) good Estephania Sher " Mental Status Exam: intelligence adequate fund of information, intact memory processes, oriented to person, oriented to place, oriented to time, oriented to situation, oriented to reality Estephania Sher " hallucinations none Estephania Sher " thought content (mental status exam) (E&M) lucid Estephania Sher " mental status assessment, process able to abstract, goal-directed, logical Estephania Sher " mental status assessment, sensorium alert, attentive, clear Estephania Sher " affect (mental status exam) congruent, normal intensity, normal range Estephania Sher " mood (mental status exam) frustrated Estephania Sher " mental status assessment, speech activity normal flow, normal pace, normal pressure, normal rate, normal tone, normal volume, spontaneous Estephania Sher " mental status assessment, motor activity normal gait, normal posture Estephania Sher " behavior (mental status exam) appropriate, candid, cooperative, good eye contact, polite, responsive Estephania Sher " mental appearance (mental status exam) adequate hygiene, appropriate dress, looks like stated age, dangelo Waynezano mood (mental status exam) depressed, sad, worried Estephania Sher " mental status assessment, judgment good Estephania Sher " insight (mental status exam) good Estephania Sher " Mental Status Exam: intelligence adequate fund of information, intact memory processes, oriented to person, oriented to place, oriented to time, oriented to situation, oriented to reality Estephania Sher " hallucinations none Estephania Sher " thought content (mental status exam) (E&M) lucid Estephania Sher " mental status assessment, process able to abstract, goal-directed, logical Estephania Sher " mental status assessment, sensorium alert, attentive, clear Estephania Sher " affect (mental status exam) congruent, anxious Estephania Sher " mental status assessment, speech activity normal flow, normal pace, normal pressure, normal rate, normal tone, normal volume, spontaneous Estephania Sher " mental status assessment, motor activity normal gait, normal posture Estephania Sher " behavior (mental status exam) appropriate, candid, cooperative, good eye contact, polite, responsive Estephania Sher " mental appearance (mental status exam) adequate hygiene, appropriate dress, looks like stated age, dangelo Estephania Sher mood (mental status exam) frustrated Miles Lizabeth " mental status assessment, judgment good Miles Lizabeth " insight (mental status exam) good Miles Lizabeth " Mental Status Exam: intelligence adequate fund of information, intact memory processes, oriented to person, oriented to place, oriented to time, oriented to situation, oriented to reality Miles Lizabeth " hallucinations none Miles Lizabeth " thought content (mental status exam) (E&M) lucid Miles Lizabeth " mental status assessment, process able to abstract, goal-directed, logical Miles Lizabeth " mental status assessment, sensorium alert, attentive, clear Miles Lizabeth " affect (mental status exam) congruent, normal intensity, normal range Miles Lizabeth " mental status assessment, speech activity normal flow, normal pace, normal pressure, normal rate, normal tone, normal volume, spontaneous Miles Barone " mental status assessment, motor activity normal gait, normal posture Miles Barone " behavior (mental status exam) appropriate, candid, cooperative, good eye contact, polite, responsive Miles Barone " mental appearance (mental status exam) adequate hygiene, appropriate dress, looks like stated age, neat Miles Barone anxiety worry a lot, sleep disturbance, restlessness, irritability, many physical complaints Estephania Sher assessment of mood and affect E&M no depression, anxiety, or agitation Radha Averyt assessment of judgment and insight E&M intact Radha Averyt " mental status examination: orientation E&M oriented to time, place, and person Radha Averyt " assessment of mood and affect E&M no depression, anxiety, or agitation Radha Averyt " Generalized Anxiety Disorder Questionnaire - Question 2 0 Caterina Ugalde " Generalized Anxiety Disorder Questionnaire - Question 1 0 Caterina Ugalde Generalized Anxiety Disorder Questionnaire - Question 2 0 Caterina Ugalde " Generalized Anxiety Disorder Questionnaire - Question 1 0 Caterina Ugalde assessment of mood and affect E&M good eye contact, normal affect [facility] " mental status examination: orientation E&M alert and oriented to person, place, and time [facility] assessment of judgment and insight E&M intact Radha Averyt " mental status examination: orientation E&M oriented to time, place, and person Radha Averyt " assessment of mood and affect E&M no depression, anxiety, or agitation Radha Averyt assessment of judgment and insight E&M intact Radha Averyt " mental status examination: orientation E&M oriented to time, place, and person Radha Averyt " assessment of mood and affect E&M no depression, anxiety, or agitation Radha Averyt " Generalized Anxiety Disorder Questionnaire - Question 2 0 Ashley Cox " Generalized Anxiety Disorder Questionnaire - Question 1 0 Ashley Cox Generalized Anxiety Disorder Questionnaire - Question 2 0 Ashley Cox " Generalized Anxiety Disorder Questionnaire - Question 1 0 Ashley Cox assessment of mood and affect E&M no depression, anxiety, or agitation Ronda Richard " mental status examination: orientation E&M oriented to time, place, and person Ronda Richard " assessment of judgment and insight E&M intact Ronda Richard " Generalized Anxiety Disorder Questionnaire - Question 2 0 Ashley Kenny " Generalized Anxiety Disorder Questionnaire - Question 1 0 Ashley Cox assessment of mood and affect E&M + anxiety, restless in room, moving his legs constantly Alena Schneider " If any problems checked, how difficult have these problems made it for you to do your work, take care of things at home, or get along with other people (GAD7, question 8) 1 Alena Schneider " Generalized Anxiety Disorder Questionnaire - Question 7 1 Alena Schneider " Generalized Anxiety Disorder Questionnaire - Question 6 2 Alena Schneider " Generalized Anxiety Disorder Questionnaire - Question 5 3 Alena Schneider " Generalized Anxiety Disorder Questionnaire - Question 4 3 Alena Schneider " Generalized Anxiety Disorder Questionnaire - Question 3 3 Alena Schneider " Generalized Anxiety Disorder Questionnaire - Question 2 3 Alena Schneider " Generalized Anxiety Disorder Questionnaire - Question 1 3 Alena Schneider mental status assessment, judgment good Miles Barone " insight (mental status exam) good Miles Barone " Mental Status Exam: intelligence adequate fund of information, intact memory processes, oriented to person, oriented to place, oriented to time, oriented to situation, oriented to reality Miles Barone " hallucinations none Miles Barone " thought content (mental status exam) (E&M) lucid Miles Barone " mental status assessment, process able to abstract, goal-directed, logical Miles Barone " mental status assessment, sensorium alert, attentive, clear Miles Barone " affect (mental status exam) congruent, normal intensity, normal range Miles Barone " mental status assessment, speech activity normal flow, normal pace, normal pressure, normal rate, normal tone, normal volume, spontaneous Miles Barone " mental status assessment, motor activity normal gait, normal posture Miles Barone " behavior (mental status exam) appropriate, candid, cooperative, good eye contact, polite, responsive Miles Barone " mental appearance (mental status exam) adequate hygiene, appropriate dress, looks like stated age, neat Miles Barone assessment of judgment and insight E&M intact Alena Schneider " mental status examination: orientation E&M oriented to time, place, and person Alena Schneider " assessment of mood and affect E&M + anxiety, or agitation Alena Schneider " Generalized Anxiety Disorder Questionnaire - Question 2 0 Ashley Cox " Generalized Anxiety Disorder Questionnaire - Question 1 0 Ashley Cox mental status assessment, judgment good Miles Barone " insight (mental status exam) good Miles Barone " Mental Status Exam: intelligence adequate fund of information, intact memory processes, oriented to person, oriented to place, oriented to time, oriented to situation, oriented to reality Miles Barone " hallucinations none Miles Barone " thought content (mental status exam) (E&M) lucid Miles Barone " mental status assessment, process able to abstract, goal-directed, logical Miles Barone " mental status assessment, sensorium alert, attentive, clear Miles Barone " affect (mental status exam) congruent, normal intensity, normal range, constricted Miles Barone " mental status assessment, speech activity normal flow, normal pace, normal pressure, normal rate, normal tone, spontaneous, soft-spoken Miles Barone " mental status assessment, motor activity normal gait, normal posture Miles Barone " behavior (mental status exam) appropriate, candid, cooperative, good eye contact, polite, responsive Miles Barone " mental appearance (mental status exam) adequate hygiene, appropriate dress, looks like stated age, neat Miles Barone " anxiety worry a lot, sleep disturbance, restlessness Miles Barone mental status examination: orientation E&M oriented to time, place, and person Alena Schneider " assessment of mood and affect E&M + anxiety Alena Schneider " Generalized Anxiety Disorder Questionnaire - Question 2 0 Linnea Manzo " Generalized Anxiety Disorder Questionnaire - Question 1 0 Linnea Manzo assessment of judgment and insight E&M intact Alena Schneider " mental status examination: orientation E&M oriented to time, place, and person Alena Schneider " assessment of mood and affect E&M no depression, anxiety, or agitation Alena Schneider " If any problems checked, how difficult have these problems made it for you to do your work, take care of things at home, or get along with other people (GAD7, question 8) 1 Alena Schneider " Generalized Anxiety Disorder Questionnaire - Question 7 0 Alena Schneider " Generalized Anxiety Disorder Questionnaire - Question 6 0 Alena Schneider " Generalized Anxiety Disorder Questionnaire - Question 5 0 Alena Schneider " Generalized Anxiety Disorder Questionnaire - Question 4 2 Alena Schneider " Generalized Anxiety Disorder Questionnaire - Question 3 2 Alena Schneider " Generalized Anxiety Disorder Questionnaire - Question 2 2 Alena Schneider " Generalized Anxiety Disorder Questionnaire - Question 1 2 Alena Schneider assessment of judgment and insight E&M intact Luli Tomlinson " mental status examination: orientation E&M oriented to time, place, and person Luli Tomlinson " assessment of mood and affect E&M no depression, anxiety, or agitation Luli Tomlinson assessment of judgment and insight E&M intact Luli Tomlinson " assessment of mood and affect E&M no depression, anxiety, or agitation Luli Tomlinson " Generalized Anxiety Disorder Questionnaire - Question 2 0 Caterina Ugalde " Generalized Anxiety Disorder Questionnaire - Question 1 0 Caterina Ugalde MEDICAL EQUIPMENT No Information Available FAMILY HISTORY No Information Available INSURANCE PROVIDERS Payer name Policy type / Coverage type Covered constitution party ID Sliding Fee - Cat 1 [employer] insurance [employer] [id number] [employer] [id number] ADVANCE DIRECTIVES No Information Available TREATMENT PLAN Date Name proBNP Creatine Kinase (CK), MB/Total Troponin I Vitamin D, 25-Hydroxy TSH Rfx on Abnormal to Free T4 CBC With Differential/Platelet Vitamin B12 and Folate C-Reactive Protein, Quant Sedimentation Rate-Westergren Microalb/Creat Ratio, Randm Ur Hemoglobin A1c Lipid Panel Comp. Metabolic Panel (14) Lipid Panel Comp. Metabolic Panel (14) Hemoglobin A1c RPR Lipid Panel HIV 1/2 ANTIGEN/ANTIBODY, FOURTH GENERATION W/RFL HCV Antibody HBsAg Screen Chlamydia/GC Amplification CBC With Differential/Platelet Comp. Metabolic Panel (14) Hemoglobin A1c - - - - - - Est Patient Detailed - 99298 EKG - 12 Leads with Interpretation and Report Psychotherapy 30 (16-37*) min - 21988 (with patient and/or family member) Psychotherapy 45 (38-52*) min - 34625 (with patient and/or family member) Diagnostic evaluation (no medical) - 19668 Est Patient Detailed - 46773 Est Patient Exp Problem - 59505 Behavioral Health - Therapy EKG - 12 Leads with Interpretation and Report Est Patient Detailed - 83520 Est Patient Detailed - 86169 Progressive lens, per lens Frames, purchases Spherocyl, bif, +/- 4.25 to +/- 7.00d sphere, 2.12 to 4.00d cyl, per lens New Patient Intermediate Opth - 02668 Est Patient Detailed - 00230 Est Patient Detailed - 14328 Est Patient Exp Problem - 27490 Est Patient Detailed - 82252 EKG - Tracing Only Est Patient Detailed - 28220 Est Patient Exp Problem - 55658 Est Patient Detailed - 79912 Diagnostic evaluation with medical - 28149 Est Patient Detailed - 22587 Est Patient Detailed - 49448 Behavioral Health - Psychiatry Est Patient Detailed - 45987 Pneumovax Vaccine PPSV23 Influenza 4 Valent 3yrs+ IM - Declined Vision New Patient Well Exam (40 - 64 Yrs) - 05815 Handling of specimen for transfer Venipuncture INFLUENZA VACCINE QUADRIVALENT 3 YRS PLUS IM TDAP HISTORY OF PROCEDURES Procedure Date Procedure Name Provider Procedure Notes Status EKG - 12 Leads with Interpretation and Report Radha Jc completed Psychotherapy 30 (16-37*) min - 80060 (with patient and/or family member) Estephania Sher completed Psychotherapy 45 (38-52*) min - 19095 (with patient and/or family member) Estephania Sher completed Diagnostic evaluation (no medical) - 09521 Estephania Sher completed EKG - 12 Leads with Interpretation and Report Radha Jc completed Progressive lens, per lens La Nena Valladares completed Frames, purchases La Nena Valladares completed Spherocyl, bif, +/- 4.25 to +/- 7.00d sphere, 2.12 to 4.00d cyl, per lens La Nena Valladares 125.00 completed New Patient Intermediate Opth - 24767 Cash Liu completed EKG - Tracing Only Ronda Hilary completed Diagnostic evaluation with medical - 33133 Miles Barone completed Influenza 4 Valent 3yrs+ IM - Declined Luli Tomlinson completed Venipuncture Luli Tomlinson completed GOALS No Information Available HEALTH CONCERNS No Information Available
[2019-05-10 11:18] LABS: BASOPHILS % 0.5 % (0.0-1.0); EOSINOPHILS # (AUTO) 0.2 (0.0-0.4); EOSINOPHILS % 2.7 % (0.0-6.0); HEMATOCRIT 46.3 % (38.2-49.6); HEMOGLOBIN 15.4 g/dL (14.0-18.0); LYMPHOCYTES # (AUTO) 2.2 (1.0-3.2); LYMPHOCYTES % 33.9 % (18.0-39.1); MEAN CORPUSCULAR HEMOGLOBIN 29.3 pg (28-32); MEAN CORPUSCULAR HGB CONC 33.3 g/dL (31-35); MEAN CORPUSCULAR VOLUME 88.2 fL (81-99); MONOCYTES # (AUTO) 0.5 (0.2-0.8); MONOCYTES % 7.1 % (4.4-11.3); NEUTROPHILS # (AUTO) 3.5 (2.1-6.9); NEUTROPHILS % 55.5 % (38.7-80.0); PLATELET COUNT 300 x10e3/uL (140-360); RED BLOOD COUNT 5.25 x10e6/uL (4.3-5.7); RED CELL DISTRIBUTION WIDTH 13.2 % (11.7-14.4)
[2019-05-10 11:29] LABS: INR 0.89; PROTHROMBIN TIME 12.5 seconds (11.9-14.5)
[2019-05-10 11:30] LABS: PARTIAL THROMBOPLASTIN TIME 27.7 seconds (23.8-35.5)
[2019-05-10 11:33] LABS: ANION GAP 13.6 mmol/L (8-16); BLOOD UREA NITROGEN 17 mg/dL (7-26); BUN/CREATININE RATIO 18 (6-25); CALCIUM 9.7 mg/dL (8.4-10.2); CARBON DIOXIDE 27 mmol/L (22-29); CHLORIDE 101 mmol/L (98-107); CREATININE, SERUM 0.92 mg/dL (0.72-1.25); EST GLOMERULAR FILTRATION RATE > 60 ML/MIN (60-); GLUCOSE 95 mg/dL (74-118); POTASSIUM 3.6 mmol/L (3.5-5.1); SODIUM 138 mmol/L (136-145)
[2019-05-10 14:50] VITALS: BP 132/92
--- NOTE | 2019-05-12 12:40 | Operative Report ---
DATE OF PROCEDURE: 05/10/2019 SURGEON: Venessa Mason DPM [employer] OPERATOR: None. PREOPERATIVE DIAGNOSIS: Right foot fifth metatarsal fracture. POSTOPERATIVE DIAGNOSIS: Right foot fifth metatarsal fracture. PROCEDURE: Open reduction and internal fixation, fifth metatarsal fracture. HEMOSTASIS: None. INJECTABLES: 20 mL, 0.5% Marcaine plain. MATERIALS INFUSED: One Maryann 4.5 plus fully cannulated screw of the appropriate length. DESCRIPTION OF PROCEDURE: After informed consent was obtained, the patient was brought to the operating room and placed on the operating table in supine position. General anesthesia was obtained. Pneumatic ankle tourniquet was applied to the right ankle. The right lower extremity was scrubbed, prepped, and draped in the usual aseptic manner. Attention was directed to the right foot, where the fifth metatarsal fracture was identified utilizing . 4.5 screw was placed across the fracture site and the fracture was reduced. This was confirmed with intraoperative fluoroscopy. Next, a 4.5 partially threaded cannulated screw with the appropriate length was placed across the fracture site after a mini incision was made along 0.5 to 1 cm length, the incision was deepened down utilizing sharp dissection technique. Operative structures were identified and retracted as necessary. All bleeders were identified, ligated and cauterized as necessary. Next, intraoperative fluoroscopy was used which showed good reduction of the deformity and good fixation across the fracture site was removed from surgical site. Intraoperative fluoroscopy was used, which showed good reduction of deformity and good fixation across the fracture site. The wound was then coapted utilizing 4-0 nylon. The surgical site was then injected with approximately 20 mL of 0.5% Marcaine plain. The right foot was then placed in dry sterile dressing consisting of Xeroform, 4 x 4's, Kerlix. At this time, The patient tolerated the procedure and anesthesia well. The patient was transferred back to the recovery room with vital signs stable and neurovascular status intact to preop status. Venessa Mason DPM [facility]/MODL /[id number]
== END | disposition home or self-care (01) ==
LOC: OR 10:02
PROVIDERS: ATTEND Podiatrist Foot & Ankle Surgery
DX: S92.301A Fracture of unspecified metatarsal bone(s), right foot, initial encounter for closed fracture (principal); M79.671 Pain in right foot; Z01.810 Encounter for preprocedural cardiovascular examination; Z01.812 Encounter for preprocedural laboratory examination; Z01.811 Encounter for preprocedural respiratory examination; E11.9 Type 2 diabetes mellitus without complications; Z79.82 Long term (current) use of aspirin; E78.5 Hyperlipidemia, unspecified; I25.2 Old myocardial infarction; I11.0 Hypertensive heart disease with heart failure; I50.9 Heart failure, unspecified; I25.10 Atherosclerotic heart disease of native coronary artery without angina pectoris; K21.9 Gastro-esophageal reflux disease without esophagitis; F41.9 Anxiety disorder, unspecified; Z79.4 Long term (current) use of insulin
CPT/HCPCS: 28485; 36415; 71046; 80048; 82948; 85025; 85610; 85730; 93005; C1713; C1769; J0690; J2001; J2250; J2405; J2704; J3010; J1100